=== PATIENT | female | born 1955 | race Caucasian/White ===

== ENCOUNTER 2016-06-15 23:15 | Emergency (ER) | payer BC ==
[~2016-06-15] VITALS: Ht 154.9 cm; Wt 99.5 kg
[~2016-06-15 23:15] MED LIST: ACET325T33 PO; ALBU8.5H3 INH; ATOR10TA65 PO; AZIT500T3 PO; BENA10TA48 PO; BUPR75TA9 PO; CITA20TA11 PO; DOCU-159 PO; FLUT9.9S NASAL; GABA300C16 PO; IBUP-1542 PO; IPRA4AER INHALATION; LANT3I SC; LORA10TA3 PO; MORP15TA92 PO; PANT40TA3 PO; SITA25TA3 PO; TRAZ50TA18 PO
[2016-06-15 23:33] VITALS: Ht 154.9 cm; Wt 99.5 kg
[2016-06-16] MEDS ORDERED: morphine 4 MG/ML VIAL IV STA ×2 (06:18→08:34)
[2016-06-16] MEDS ORDERED: ONDANSETRON 4 MG INJ IV STA (06:18)
--- NOTE | 2016-06-16 06:24 | ERA ---
ER Documentation Chief Complaint Date/Time DATE: 06/16/16 TIME: 06:10 Chief Complaint Palpitaion and leg pain with hx of Lymphedema HPI 61-year-old female with a history of diabetes mellitus type 2, CKD stage III, chronic pain, fibromyalgia, cervical cancer status post hysterectomy chronic lower extremity swelling and DVTs, anemia, bronchospasm and bronchitis ambulatory to the ED complaining of 4 day history of increasing swelling and pain of the left greater than right lower extremity. Pain is pressure-like, crampy, nonradiating and quantified as moderate to severe. No rubor or calor. No history of trauma or injury. Denies chest pain or palpitations. No shortness of breath or cough. No abdominal pain, nausea or vomiting. No relieving or exacerbating factors. No fevers or chills. ROS All systems reviewed and are negative except as per history of present illness. Medications Home Meds Active Scripts Azithromycin* (Zithromax*) 500 Mg Tablet, 500 MG PO DAILY for 5 Days, TAB Prov:DARWIN GARNICA 04/19/16 Albuterol/Ipratropium* (Combivent Respimat*) 20-100 Mcg/Inh - 4 Gm Aer.w.adap, 1 PUFF INHALATION QID, #1 INHALER 3 Refills Prov:DARWIN GARNICA 04/19/16 Ibuprofen* (Ibuprofen*) 600 Mg Tablet, 600 MG PO Q6H, #30 TAB Prov:MARY ANN COMER PA-C 04/08/16 Acetaminophen* (Tylenol*) 325 Mg Tablet, 1 TAB PO Q4 Y for PAIN AND OR ELEVATED TEMP, #30 TAB Prov:MARY ANN COMER PA-C 04/08/16 Albuterol Sulfate* (Proair HFA*) 8.5 Gm Hfa.aer.ad, 2 PUFF INH Q4H Y for WHEEZING AND SOB, #1 INHALER Prov:SINGH FARNCIS NP 02/28/16 Trazodone Hcl* (Desyrel*) 50 Mg Tab, 150 MG PO HS for 30 Days, #30 TAB Prov:TRACY AGUILAR M.D. 09/17/15 Gabapentin* (Gabapentin*) 300 Mg Capsule, 300 MG PO TID for 30 Days, #90 CAP Prov:TRACY AGUILAR M.D. 09/17/15 Citalopram Hydrobromide* (Celexa*) 20 Mg Tablet, 40 MG PO DAILY for 30 Days, # 30 TAB Prov:TRACY AGUILAR M.D. 09/17/15 Bupropion Hcl* (Bupropion Hcl*) 75 Mg Tablet, 75 MG PO BID for 30 Days, #60 TAB Prov:TRACY AGUILAR M.D. 09/17/15 Insulin Glargine* (Lantus*) 100 Unit/Ml Soln, 30 UNIT SC QHS for 30 Days, #30 DAYSX 3 28 30 units SQ at bedtime; hold for blood sugar below 80 Prov:TRACY AGUILAR M.D. 09/17/15 Atorvastatin Calcium (Atorvastatin Calcium) 10 Mg Tablet, 10 MG PO DAILY@21 for 30 Days, #30 TAB 1 by mouth at bedtime every night Prov:TRACY AGUILAR M.D. 09/17/15 Reported Medications Loratadine* (Loratadine*) 10 Mg Tablet, 10 MG PO DAILY, #30 TAB 09/15/15 Fluticasone Propionate (Flonase Allergy Relief) 9.9 Ml [place].susp, 1 SPRAY NASAL BID, #1 BOTTLE TO EACH NOSTRIL 09/15/15 Sitagliptin* (Januvia*) 25 Mg Tablet, 25 MG PO DAILY, #30 TAB 09/15/15 Benazepril Hcl* (Benazepril Hcl*) 10 Mg Tablet, 10 MG PO DAILY, #30 TAB 09/15/15 Pantoprazole* (Protonix*) 40 Mg Tablet.dr, 40 MG PO DAILY, TAB 09/15/15 Docusate Sodium* (Docusate Sodium*) 100 Mg Capsule, 100 MG PO BID, #60 CAP 09/15/15 Morphine Sulfate* (Ms Contin*) 15 Mg Tablet.sa, 30 MG PO Q12, TAB 09/15/15 Allergies Allergies: Coded Allergies: No Known Allergy (Unverified , 06/16/16) PMhx/Soc Reviewed in chart. As per HPI History of Surgery: Yes (HYSTERECTOMY, APPENDECTOMY) Anesthesia Reaction: No Hx Neurological Disorder: No Hx Respiratory Disorders: Yes (PNA, Bronchitis) Hx Cardiac Disorders: Yes (htn) Hx Psychiatric Problems: Yes (depression) Hx Miscellaneous Medical Probl: Yes (CHRONIC PAIN SYNDROME, CERVICAL CA, FIBROMYALGIA, DEPRESSION, DM, PNA) Hx Alcohol Use: No Hx Substance Use: No Hx Tobacco Use: No Smoking Status: Never smoker FmHx Reviewed in chart. Not relevant to presenting complaint. Physical Exam Vitals Vital Signs Date Time Temp Pulse Resp B/P Pulse Ox O2 Delivery O2 Flow Rate FiO2 06/16/16 06:40 98.1 105 18 126/73 96 Room Air 06/16/16 05:40 97.9 105 24 165/91 97 Room Air 06/15/16 23:33 97.9 113 24 142/65 95 Physical Exam Const: Alert, mild distress due to pain. Head: Atraumatic Eyes: Normal Conjunctiva ENT: Normal External Ears, Nose and Mouth. Neck: Full range of motion. Resp: Breath sounds are equal and clear to auscultation bilaterally Cardio: Regular rate and rhythm, no murmurs Abd: Soft, obese, non tender, non distended. Normal bowel sounds Skin: No petechiae or rashes Back: No midline or flank tenderness Ext: No cyanosis. Markedly swollen right greater than left lower extremity. No pitting edema. No calf tenderness. Neur: Awake and alert. No focal deficit observed. Psych: Normal Mood and Affect Result Diagram: 06/16/16 0600 06/16/16 0600 Results 24 hrs Laboratory Tests Test 06/16/16 06:00 Activated Partial Thromboplast Time 28.1Sec Alanine Aminotransferase (ALT/SGPT) 24IU/L Albumin 4.0g/dl Albumin/Globulin Ratio 1.11 Alkaline Phosphatase 106IU/L Anion Gap 19 Aspartate Amino Transf (AST/SGOT) 26IU/L Basophils # 0.110^3/ul Basophils % 0.9% Blood Morphology Comment Blood Urea Nitrogen 24mg/dl Calcium Level 9.6mg/dl Carbon Dioxide Level 26mmol/L Chloride Level 101mmol/L Creatinine 1.36mg/dl Direct Bilirubin 0.00mg/dl Eosinophils # 0.310^3/ul Eosinophils % 4.5% Globulin 3.60g/dl Glucose Level 309mg/dl Hematocrit 38.2% Hemoglobin 12.8g/dl INR International Normalized Ratio 0.89 Indirect Bilirubin 0.1mg/dl Lymphocytes # 1.910^3/ul Lymphocytes % 26.1% Mean Corpuscular Hemoglobin 27.7pg Mean Corpuscular Hemoglobin Concent 33.6g/dl Mean Corpuscular Volume 82.4fl Mean Platelet Volume 9.5fl Monocytes # 0.610^3/ul Monocytes % 7.9% Neutrophils # 4.410^3/ul Neutrophils % 60.6% Nucleated Red Blood Cells # 0.010^3/ul Nucleated Red Blood Cells % 0.0/100WBC Platelet Count 91274^3/UL Potassium Level 4.2mmol/L Prothrombin Time 12.0Sec Prothrombin Time Ratio 0.9 Red Blood Count 4.6410^6/ul Red Cell Distribution Width 15.7% Sodium Level 142mmol/L Total Bilirubin 0.1mg/dl Total Protein 7.6g/dl White Blood Count 7.210^3/ul Current Medications Medications (Trade) Dose Ordered Sig/Nuno Route PRN Reason Start Time Stop Time Status Last Admin Dose Admin Morphine Sulfate (morphine) 4 mg ONCE STAT IV 06/16/16 06:18 06/16/16 06:21 DC 06/16/16 06:41 Ondansetron HCl (Zofran Inj) 4 mg ONCE STAT IV 06/16/16 06:18 06/16/16 06:22 DC 06/16/16 06:41 Morphine Sulfate 4 mg 4 mg ONCE STAT IV 06/16/16 08:34 06/16/16 08:35 DC 06/16/16 08:45 Sodium Chloride (NS) 1,000 ml @ 1,000 mls/hr Q1H STAT IV 06/16/16 08:36 06/16/16 09:35 DC 06/16/16 08:45 EKG: TIME: 06/15/2016 23:35. Sinus tachycardia. Ventricular rate 112. Nonspecific T-wave inversions but no acute ST segment elevation or depression. No axis deviation or ectopy. EP Interpretation: Abnormal EKG. IMAGING: ROCEDURE: Ultrasound examination of bilateral lower extremities veins with Doppler. CLINICAL INDICATION: Leg pain and swelling. TECHNIQUE: Multiple sonographic images of bilateral lower extremity venous systems were performed with ruffin scale and color Doppler. COMPARISON: 04/17/2016. FINDINGS: Bilateral common femoral, superficial femoral and popliteal veins demonstrate normal color flow, waveforms, compression and response to augmentation. There is no evidence of deep venous thrombosis. Bilateral peroneal and left saphenous veins are not visualized. IMPRESSION: No evidence of deep venous thrombosis within bilateral lower extremities. .Kevon House MD, Date Time Electronically viewed and signed by .Kevon House MD, on 06/16/2016 07:20 .T/ Procedures/MDM DOCUMENTS REVIEWED: ED nurse, prior ED, prior records ED COURSE: IV saline lock. Morphine 4 mg/Zofran 4 mg IV REEXAMINATION/REEVALUATION: Time: 08:20. Doing well but still complaining of pain. Second morphine 4 mg IV given. Normal saline 1 L. REEXAMINATION/REEVALUATION: Time: 10:00. Doing well. Pain resolved. Vital signs normal. Wants to go home. MEDICAL DECISION MAKIN-year-old female with a history of diabetes mellitus type 2, CKD stage III, chronic pain, fibromyalgia, cervical cancer status post hysterectomy chronic lower extremity swelling and DVTs, anemia, bronchospasm and bronchitis ambulatory to the ED complaining of 4 day history of increasing swelling and pain of the left greater than right lower extremity. Venous Dopplers negative for DVT. No evidence of cellulitis or lymphangitis. Chronic renal insufficiency. Hyperglycemia without evidence of DKA or HONK treated with IV hydration and patient will take her regular diabetes medicine when she gets home. No chest pain, shortness of breath or other concerns regarding pulmonary embolism. Presentation consistent with exacerbation of chronic pain. Stable for discharge with precautionary instructions and outpatient follow-up as counseled. Counseled patient regarding diagnosis, diagnostic results and plan for discharge. 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
[2016-06-16 06:32] LABS: BASOPHIL # 0.1 10^3/ul (0.0-0.1); BASOPHILS % 0.9 % (0.0-2.0); EOSINOPHILS # 0.3 10^3/ul (0.0-0.5); EOSINOPHILS % 4.5 % (0.0-7.0); HEMATOCRIT 38.2 % (37.0-47.0); HEMOGLOBIN 12.8 g/dl (12.0-16.0); LYMPHOCYTES # 1.9 10^3/ul (0.8-2.9); LYMPHOCYTES % 26.1 % (15.0-51.0); MEAN CORPUSCULAR HEMOGLOBIN 27.7 pg (29.0-33.0); MEAN CORPUSCULAR HGB CONC 33.6 g/dl (32.0-37.0); MEAN CORPUSCULAR VOLUME 82.4 fl (82.0-101.0); MEAN PLATELET VOLUME 9.5 fl (7.4-10.4); MONOCYTE # 0.6 10^3/ul (0.3-0.9); MONOCYTES % 7.9 % (0.0-11.0); NEUTROPHIL # 4.4 10^3/ul (1.6-7.5); NEUTROPHILS % 60.6 % (39.0-77.0); PLATELET COUNT 199 10^3/UL (140-440); RED BLOOD COUNT 4.64 10^6/ul (4.20-5.40); RED CELL DISTRIBUTION WIDTH 15.7 % (11.5-14.5); UNCORRECTED WBC 7.2 10^3/ul (4.8-10.8); WHITE BLOOD COUNT 7.2 10^3/ul (4.8-10.8)
[2016-06-16 06:38] LABS: CONDITION 1; LH ANALYZER COMMENTS 1
[2016-06-16 06:40] VITALS: BP 126/73; PULSE 105; RESP 18; TEMP 98.1
[2016-06-16 06:41] LABS: INR 0.89; PT RATIO 0.9
[2016-06-16 06:42] LABS: PARTIAL THROMBOPLASTIN TIME 28.1 Sec (25.0-35.0)
[2016-06-16 06:56] LABS: POTASSIUM 4.2 mmol/L (3.5-5.1)
[2016-06-16 06:58] LABS: ALBUMIN/GLOBULIN RATIO 1.11; BILIRUBIN,INDIRECT 0.1 mg/dl (0-1.1); BILIRUBIN,TOTAL 0.1 mg/dl (0.2-1.3); CREATININE 1.36 mg/dl (0.44-1.00); TOTAL PROTEIN 7.6 g/dl (6.1-8.1)
[2016-06-16 06:59] LABS: CALCIUM 9.6 mg/dl (8.4-10.2)
--- NOTE | 2016-06-16 07:20 | RADRPT ---
PROCEDURE: Ultrasound examination of bilateral lower extremities veins with Doppler. CLINICAL INDICATION: Leg pain and swelling. TECHNIQUE: Multiple sonographic images of bilateral lower extremity venous systems were performed with ruffin scale and color Doppler. COMPARISON: 04/17/2016. FINDINGS: Bilateral common femoral, superficial femoral and popliteal veins demonstrate normal color flow, wav eforms, compression and response to augmentation. There is no evidence of deep venous thrombosis. B ilateral peroneal and left saphenous veins are not visualized. IMPRESSION: No evidence of deep venous thrombosis within bilateral lower extremities. .Kevon House MD, MD Date Time Electronically viewed and signed by .Kevon House MD, MD on 06/16/2016 07:20 .T/
[2016-06-16] MEDS ORDERED: SOD CHLORIDE 0.9% 1,000 ML IV STA (08:36)
== END 2016-06-16 10:34 | disposition home or self-care (01) ==
LOC: E/R 23:15
DX: G89.29 Other chronic pain (principal); I89.0 Lymphedema, not elsewhere classified; M79.7 Fibromyalgia; E11.65 Type 2 diabetes mellitus with hyperglycemia; I12.9 Hypertensive chronic kidney disease with stage 1 through stage 4 chronic kidney disease, or unspecified chronic kidney disease; N18.3 Chronic kidney disease, stage 3 (moderate); Z85.41 Personal history of malignant neoplasm of cervix uteri; Z79.84 Long term (current) use of oral hypoglycemic drugs; Z79.4 Long term (current) use of insulin
CPT/HCPCS: 80053; 85025; 85610; 85730; 93970; J2270; J2405; J7030; 93005; 96374; 96375; 96376

== ENCOUNTER 2016-06-20 15:00 | Emergency (ER) | payer BC ==
[~2016-06-20] VITALS: Wt 100.0 kg
[2016-06-20] MEDS ORDERED: ONDANSETRON 4 MG INJ IV STA (15:31)
[2016-06-20] MEDS ORDERED: FAMOTIDINE 20 MG INJ IV STA (15:31)
[2016-06-20] MEDS ORDERED: SOD CHLORIDE 0.9% 1,000 ML IV STA ×2 (15:31→18:14)
[2016-06-20] MEDS ORDERED: KETOROLAC 15 MG INJ IV STA (16:06)
[2016-06-20 16:24] LABS: BASOPHIL # 0.1 10^3/ul (0.0-0.1); BASOPHILS % 0.9 % (0.0-2.0); EOSINOPHILS # 0.2 10^3/ul (0.0-0.5); EOSINOPHILS % 2.5 % (0.0-7.0); HEMATOCRIT 37.9 % (37.0-47.0); HEMOGLOBIN 12.6 g/dl (12.0-16.0); LYMPHOCYTES # 1.6 10^3/ul (0.8-2.9); LYMPHOCYTES % 19.1 % (15.0-51.0); MEAN CORPUSCULAR HEMOGLOBIN 27.5 pg (29.0-33.0); MEAN CORPUSCULAR HGB CONC 33.4 g/dl (32.0-37.0); MEAN CORPUSCULAR VOLUME 82.5 fl (82.0-101.0); MONOCYTE # 0.6 10^3/ul (0.3-0.9); MONOCYTES % 6.7 % (0.0-11.0); NEUTROPHILS % 70.8 % (39.0-77.0); PLATELET COUNT 216 10^3/UL (140-440); RED CELL DISTRIBUTION WIDTH 15.5 % (11.5-14.5); UNCORRECTED WBC 8.5 10^3/ul (4.8-10.8); WHITE BLOOD COUNT 8.5 10^3/ul (4.8-10.8)
[2016-06-20 16:27] LABS: ADD UMIC YES; URINE BILIRUBIN (Dip) NEGATIVE (NEGATIVE); URINE BLOOD (Dip) TRACE (NEGATIVE); URINE COLOR LT. YELLOW (YELLOW); URINE GLUCOSE (Dip) >=1000 % (NEGATIVE); URINE KETONES (Dip) NEGATIVE (NEGATIVE); URINE LEUKOCYTE ESTERASE (Dip) NEGATIVE (NEGATIVE); URINE NITRITE (Dip) NEGATIVE (NEGATIVE); URINE TOTAL PROTEIN (Dip) NEGATIVE (NEGATIVE); URINE UROBILINOGEN (Dip) 0.2 E.U./dL (0.1-1.0)
[2016-06-20] MEDS ORDERED: BUPR300T48 PO (16:28)
[2016-06-20] MEDS ORDERED: LORA1TAB PO (16:29)
[2016-06-20] MEDS ORDERED: LANT3I SC (16:29)
[2016-06-20] MEDS ORDERED: OXYC-209 PO (16:30)
[2016-06-20 16:33] LABS: ALBUMIN 4.1 g/dl (3.3-4.9)
[2016-06-20 16:34] LABS: POTASSIUM 4.6 mmol/L (3.5-5.1)
[2016-06-20 16:35] LABS: CONDITION 1; LH ANALYZER COMMENTS 1
[2016-06-20 16:36] LABS: ALBUMIN/GLOBULIN RATIO 1.28; BILIRUBIN,INDIRECT 0.1 mg/dl (0-1.1); BILIRUBIN,TOTAL 0.1 mg/dl (0.2-1.3); CREATININE 1.31 mg/dl (0.44-1.00); TOTAL PROTEIN 7.3 g/dl (6.1-8.1)
[2016-06-20 16:37] LABS: CALCIUM 9.5 mg/dl (8.4-10.2)
[2016-06-20 16:49] LABS: BACTERIA,URINE FEW
[2016-06-20] MEDS ORDERED: INSULIN REGULAR, HUMAN 100 UNIT/1 ML 3ML VIAL SC ONE (17:00)
[2016-06-20] MEDS ORDERED: morphine 4 MG/ML VIAL IV STA (17:49)
--- NOTE | 2016-06-20 18:47 | ERD ---
ER Documentation Chief Complaint Date/Time DATE: 06/20/16 TIME: 18:44 Chief Complaint high sugars in 400's and nausea and abdominal pain for 1 wk HPI This is a 61-year-old female who presents to the emergency room for evaluation of abdominal discomfort, nausea and high blood sugar. The patient is a type II diabetic and is taking Januvia, insulin, and glyburide. She states that she took her medications as prescribed and that she took her blood sugar was greater than 400. She came to the ER for evaluation. She denies any diarrhea or fevers associated with this. She describes her abdominal discomfort is a crampy feeling localized in the epigastric region with no radiation. ROS All systems reviewed and are negative except as per history of present illness. Medications Home Meds Reported Medications Oxycodone HCl/Acetaminophen (Percocet 10-325 mg Tablet) 1 Each Tablet, 2 EACH PO BID, TAB 06/20/16 Lorazepam* (Lorazepam*) 1 Mg Tablet, 1 MG PO HS, #30 TAB 06/20/16 Insulin Glargine* (Lantus*) 100 Unit/Ml Soln, 40 UNIT SC QHS, #1 VIAL 06/20/16 Bupropion Hcl* (Wellbutrin XL*) 300 Mg Tab.sr.24h, 300 MG PO TID, TAB.SA 06/20/16 Sitagliptin* (Januvia*) 25 Mg Tablet, 25 MG PO DAILY, #30 TAB 09/15/15 Pantoprazole* (Protonix*) 40 Mg Tablet.dr, 40 MG PO DAILY, TAB 09/15/15 Discontinued Reported Medications Loratadine* (Loratadine*) 10 Mg Tablet, 10 MG PO DAILY, #30 TAB 09/15/15 Fluticasone Propionate (Flonase Allergy Relief) 9.9 Ml [place].susp, 1 SPRAY NASAL BID, #1 BOTTLE TO EACH NOSTRIL 09/15/15 Benazepril Hcl* (Benazepril Hcl*) 10 Mg Tablet, 10 MG PO DAILY, #30 TAB 09/15/15 Docusate Sodium* (Docusate Sodium*) 100 Mg Capsule, 100 MG PO BID, #60 CAP 09/15/15 Morphine Sulfate* (Ms Contin*) 15 Mg Tablet.sa, 30 MG PO Q12, TAB 09/15/15 Discontinued Scripts Azithromycin* (Zithromax*) 500 Mg Tablet, 500 MG PO DAILY for 5 Days, TAB Prov:DARWIN GARNICA F 04/19/16 Albuterol/Ipratropium* (Combivent Respimat*) 20-100 Mcg/Inh - 4 Gm Aer.w.adap, 1 PUFF INHALATION QID, #1 INHALER 3 Refills Prov:DARWIN GARNICA F 04/19/16 Ibuprofen* (Ibuprofen*) 600 Mg Tablet, 600 MG PO Q6H, #30 TAB Prov:MARY ANN COMER PA-C 04/08/16 Acetaminophen* (Tylenol*) 325 Mg Tablet, 1 TAB PO Q4 Y for PAIN AND OR ELEVATED TEMP, #30 TAB Prov:MARY ANN COMER PA-C 04/08/16 Albuterol Sulfate* (Proair HFA*) 8.5 Gm Hfa.aer.ad, 2 PUFF INH Q4H Y for WHEEZING AND SOB, #1 INHALER Prov:SINGH FRANCIS NP 02/28/16 Trazodone Hcl* (Desyrel*) 50 Mg Tab, 150 MG PO HS for 30 Days, #30 TAB Prov:TRACY AGUILAR M.D. 09/17/15 Gabapentin* (Gabapentin*) 300 Mg Capsule, 300 MG PO TID for 30 Days, #90 CAP Prov:TRACY AGUILAR MMelodieD. 09/17/15 Citalopram Hydrobromide* (Celexa*) 20 Mg Tablet, 40 MG PO DAILY for 30 Days, # 30 TAB Prov:TRACY AGUILAR MMelodieD. 09/17/15 Bupropion Hcl* (Bupropion Hcl*) 75 Mg Tablet, 75 MG PO BID for 30 Days, #60 TAB Prov:TRACY AGUILAR MMelodieDMelodie 09/17/15 Insulin Glargine* (Lantus*) 100 Unit/Ml Soln, 30 UNIT SC QHS for 30 Days, #30 DAYSX 3 28 30 units SQ at bedtime; hold for blood sugar below 80 Prov:TRACY AGUILAR. MMelodieDMelodie 09/17/15 Atorvastatin Calcium (Atorvastatin Calcium) 10 Mg Tablet, 10 MG PO DAILY@21 for 30 Days, #30 TAB 1 by mouth at bedtime every night Prov:TRACY AGUILAR M.D. 09/17/15 Allergies Allergies: Coded Allergies: No Known Allergy (Unverified , 06/20/16) PMhx/Soc History of Surgery: Yes (HYSTERECTOMY, APPENDECTOMY) Anesthesia Reaction: No Hx Neurological Disorder: No Hx Respiratory Disorders: Yes (PNA, Bronchitis) Hx Cardiac Disorders: Yes (htn) Hx Psychiatric Problems: Yes (depression) Hx Miscellaneous Medical Probl: Yes (CHRONIC PAIN SYNDROME, CERVICAL CA, FIBROMYALGIA, DEPRESSION, DM, PNA) Hx Alcohol Use: No Hx Substance Use: No Hx Tobacco Use: No Smoking Status: Never smoker Physical Exam Vitals Vital Signs Date Time Temp Pulse Resp B/P Pulse Ox O2 Delivery O2 Flow Rate FiO2 06/20/16 17:12 88 18 133/85 98 Room Air 06/20/16 15:11 98.8 122 20 158/72 96 Physical Exam INITIAL VITAL SIGNS: Reviewed by me GENERAL: The patient is well developed and appropriate for usual state of health in no apparent distress HEENT: Pupils equal, round, and reactive to light. EOMI. There is no scleral icterus. NECK: C-spine is soft and supple, there is no meningismus. There is no cervical lymphadenopathy. LUNGS: Clear to auscultation bilaterally. There are no rales, wheezes or rhonchi. HEART: Regular rate and rhythm, no murmurs, clicks, rubs or gallops. ABDOMEN: Soft, non-tender, non-distended. There are bowel sounds in all four quadrants. No rebound or guarding. EXTREMITIES: Lymphedema noted in the left lower extremity, there is no peripheral cyanosis. No focal swelling or erythema. NEUROLOGICAL: The patient moves all four extremities with 5/5 strength. Cranial nerves II - XII are intact. Normal gait. Alert and oriented SKIN: There is no apparent rash or petechiae. HEME/LYMPHATIC: There is no evidence of excessive bruising or lymphedema. PSYCHIATRIC: The patient does not appear anxious or depressed. Result Diagram: 06/20/16 1600 06/20/16 1600 Results 24 hrs Laboratory Tests Test 06/20/16 15:13 06/20/16 15:30 06/20/16 16:00 06/20/16 18:13 Bedside Glucose 414mg/dL 401mg/dL 304mg/dL Alanine Aminotransferase (ALT/SGPT) 39IU/L Albumin 4.1g/dl Albumin/Globulin Ratio 1.28 Alkaline Phosphatase 93IU/L Anion Gap 21 Aspartate Amino Transf (AST/SGOT) 33IU/L Basophils # 0.110^3/ul Basophils % 0.9% Blood Morphology Comment Blood Urea Nitrogen 21mg/dl Calcium Level 9.5mg/dl Carbon Dioxide Level 25mmol/L Chloride Level 98mmol/L Creatinine 1.31mg/dl Direct Bilirubin 0.00mg/dl Eosinophils # 0.210^3/ul Eosinophils % 2.5% Globulin 3.20g/dl Glucose Level 432mg/dl Hematocrit 37.9% Hemoglobin 12.6g/dl Indirect Bilirubin 0.1mg/dl Lipase 281U/L Lymphocytes # 1.610^3/ul Lymphocytes % 19.1% Mean Corpuscular Hemoglobin 27.5pg Mean Corpuscular Hemoglobin Concent 33.4g/dl Mean Corpuscular Volume 82.5fl Mean Platelet Volume 10.0fl Monocytes # 0.610^3/ul Monocytes % 6.7% Neutrophils # 6.010^3/ul Neutrophils % 70.8% Nucleated Red Blood Cells # 0.010^3/ul Nucleated Red Blood Cells % 0.0/100WBC Platelet Count 11682^3/UL Potassium Level 4.6mmol/L Red Blood Count 4.6010^6/ul Red Cell Distribution Width 15.5% Sodium Level 139mmol/L Total Bilirubin 0.1mg/dl Total Protein 7.3g/dl Urine Bacteria FEW Urine Bilirubin NEGATIVE Urine Clarity CLEAR Urine Color LT. YELLOW Urine Epithelial Cells FEW Urine Glucose >=1000% Urine Hemoglobin TRACE Urine Ketones NEGATIVE Urine Leukocyte Esterase NEGATIVE Urine Microscopic RBC 5-10/HPF Urine Microscopic WBC 2-5/HPF Urine Nitrite NEGATIVE Urine Specific [place] 1.015 Urine Total Protein NEGATIVE Urine Urobilinogen 0.2 E.U./dL Urine pH 6.0 White Blood Count 8.510^3/ul Current Medications Medications (Trade) Dose Ordered Sig/Nuno Route PRN Reason Start Time Stop Time Status Last Admin Dose Admin Sodium Chloride (NS) 1,000 ml @ 1,000 mls/hr Q1H STAT IV 06/20/16 15:31 06/20/16 16:30 DC 06/20/16 15:55 Ondansetron HCl (Zofran Inj) 4 mg ONCE STAT IV 06/20/16 15:31 06/20/16 15:32 DC 06/20/16 15:55 Famotidine (Pepcid Iv) 20 mg ONCE STAT IV 06/20/16 15:31 06/20/16 15:32 DC 06/20/16 15:55 Ketorolac Tromethamine (Toradol) 15 mg ONCE STAT IV 06/20/16 16:06 06/20/16 16:07 DC 06/20/16 16:17 Insulin Human Regular (Humulin R) 15 unit ONCE ONCE SC 06/20/16 17:00 06/20/16 17:01 DC 06/20/16 17:08 Morphine Sulfate 4 mg 4 mg ONCE STAT IV 06/20/16 17:49 06/20/16 17:50 DC 06/20/16 17:57 Sodium Chloride (NS) 1,000 ml @ 1,000 mls/hr Q1H STAT IV 06/20/16 18:14 06/20/16 19:13 06/20/16 18:22 Procedures/MDM This is a 61-year-old female presents to the emergency room for evaluation of abdominal cramping and hyperglycemia. She was found to have a blood sugar 401. She did have mild epigastric tenderness to palpation was given morphine for pain. Pulmonary evaluation she states that her pain has improved drastically. She is in no acute distress at this time. No signs of DKA on blood work. Her blood sugar was greater than 400 she was given 15 units of subcutaneous insulin and 2 L of fluid. Last glucose check was 301. This patient states she is feeling better will be discharged home at this time with a prescription for Zantac for possible gastritis. Advised to follow-up with her primary care physician to adjust her dose of insulin if her blood sugar is chronically elevated and she verbalized understanding. Departure Diagnosis: Primary Impression: Uncontrolled type 2 diabetes mellitus Additional Impressions: Renal insufficiency Abdominal pain Condition: Stable LEEANNE HARVEY DO Jun 20, 2016 18:47
[2016-06-20] MEDS ORDERED: RANI150T9 PO (18:48)
[2016-06-20 19:00] VITALS: BP 128/80; PULSE 92; RESP 20; TEMP 98.1
[2016-06-20] MEDS ORDERED: HYDROCODONE/APAP (5/325) TAB PO ONE (19:30)
== END 2016-06-20 19:24 | disposition home or self-care (01) ==
LOC: E/R 15:00
DX: E11.9 Type 2 diabetes mellitus without complications (principal); N28.9 Disorder of kidney and ureter, unspecified; I10 Essential (primary) hypertension; Z79.4 Long term (current) use of insulin; Z79.84 Long term (current) use of oral hypoglycemic drugs; Z85.41 Personal history of malignant neoplasm of cervix uteri
CPT/HCPCS: 36415; 80053; 81001; 82962; 83690; 85025; 96361; 96372; 96374; 96375; 99284; J1885; J2270; J2405; J7030; Z7610; 81003

== ENCOUNTER 2016-06-27 20:53 | Emergency (ER) | payer BC ==
[~2016-06-27] VITALS: Ht 160 cm; Wt 97.6 kg
[~2016-06-27 20:53] MED LIST changes: -ACET325T33 PO; -ALBU8.5H3 INH; -ATOR10TA65 PO; -AZIT500T3 PO; -BENA10TA48 PO; +BUPR300T48 PO; -BUPR75TA9 PO; -CITA20TA11 PO; -DOCU-159 PO; -FLUT9.9S NASAL; -GABA300C16 PO; -IBUP-1542 PO; -IPRA4AER INHALATION; -LORA10TA3 PO; +LORA1TAB PO; -MORP15TA92 PO; +OXYC-209 PO; +RANI150T9 PO; -TRAZ50TA18 PO
[2016-06-27 20:57] VITALS: Ht 160 cm; Wt 97.6 kg
[2016-06-27] MEDS ORDERED: ASPIRIN 325 MG TAB PO STA (22:20)
[2016-06-27] MEDS ORDERED: morphine 4 MG/ML VIAL IV STA (22:20)
[2016-06-27] MEDS ORDERED: SOD CHLORIDE 0.9% 1,000 ML IV ONE (22:30)
--- NOTE | 2016-06-27 23:04 | RADRPT ---
PROCEDURE: XR Chest. CLINICAL INDICATION: Chest pain. TECHNIQUE: Portable AP upright view of the chest was obtained. COMPARISON: 04/14/2016 FINDINGS: The cardiomediastinal silhouette is within normal limits. The lungs are clear. There is no evidenc e for pleural effusion, pneumothorax or pulmonary vascular congestion. The osseous structures are i ntact with no evidence for acute abnormality. RPTAT:HJJR IMPRESSION: No evidence for acute intrathoracic pathology or interval change from the prior exam. Physician Cy Date Time Electronically viewed and signed by Gino Persaud Physician on 06/27/2016 23:04 /
[2016-06-27 23:21] LABS: ADD SCAN DIFF NO
[2016-06-27 23:23] LABS: BASOPHIL # 0.1 10^3/ul (0.0-0.1); BASOPHILS % 0.9 % (0.0-2.0); EOSINOPHILS # 0.2 10^3/ul (0.0-0.5); EOSINOPHILS % 2.7 % (0.0-7.0); HEMATOCRIT 35.7 % (37.0-47.0); LYMPHOCYTES # 1.8 10^3/ul (0.8-2.9); LYMPHOCYTES % 24.4 % (15.0-51.0); MEAN CORPUSCULAR HEMOGLOBIN 27.6 pg (29.0-33.0); MEAN CORPUSCULAR HGB CONC 33.6 g/dl (32.0-37.0); MEAN CORPUSCULAR VOLUME 82.3 fl (82.0-101.0); MEAN PLATELET VOLUME 11.5 fl (7.4-10.4); MONOCYTE # 0.5 10^3/ul (0.3-0.9); MONOCYTES % 6.4 % (0.0-11.0); NEUTROPHIL # 4.9 10^3/ul (1.6-7.5); NEUTROPHILS % 65.2 % (39.0-77.0); PLATELET COUNT 245 10^3/UL (140-415); RED BLOOD COUNT 4.34 10^6/ul (4.20-5.40); RED CELL DISTRIBUTION WIDTH 14.4 % (11.5-14.5); WHITE BLOOD COUNT 7.5 10^3/ul (4.8-10.8)
--- NOTE | 2016-06-27 23:28 | RADRPT ---
PROCEDURE: US Lower extremity Venous. CLINICAL INDICATION: [id number] swelling of the left lower extremity. TECHNIQUE: Multiple sonographic images of the left lower extremity deep venous system was obtained utilizing grayscale, color-flow, compressive sonography and doppler imaging with augmentation. The images were reviewed on a PACS workstation. COMPARISON: None. FINDINGS: There is normal compressibility and flow within the left common femoral, deep femoral, superficial f emoral and popliteal veins. The deep veins the calf were incompletely visualized secondary to massiv e degree of swelling, and per technologist notes IMPRESSION: No sonographic evidence for deep venous thrombosis. RPTAT: [facility] Physician Rashid Date Time Electronically viewed and signed by Physician Rashid on 06/27/2016 23:27 RS/
[2016-06-27 23:32] LABS: INR 0.86; PROTIME 11.7 Sec (12.2-14.2); PT RATIO 0.9
[2016-06-27 23:33] LABS: PARTIAL THROMBOPLASTIN TIME 26.9 Sec (25.0-35.0)
[2016-06-28 00:55] LABS: ADD UMIC YES; URINE BILIRUBIN (Dip) NEGATIVE (NEGATIVE); URINE BLOOD (Dip) 3+ (NEGATIVE); URINE COLOR RED (YELLOW); URINE GLUCOSE (Dip) >=1000 % (NEGATIVE); URINE KETONES (Dip) NEGATIVE (NEGATIVE); URINE LEUKOCYTE ESTERASE (Dip) NEGATIVE (NEGATIVE); URINE NITRITE (Dip) NEGATIVE (NEGATIVE); URINE TOTAL PROTEIN (Dip) 2+ (NEGATIVE); URINE UROBILINOGEN (Dip) 0.2 E.U./dL (0.1-1.0)
[2016-06-28 01:19] LABS: POTASSIUM 4.1 mmol/L (3.5-5.1)
[2016-06-28 01:21] LABS: CREATININE 1.27 mg/dl (0.44-1.00)
[2016-06-28 01:22] LABS: CALCIUM 9.4 mg/dl (8.4-10.2)
[2016-06-28 01:35] LABS: TROPONIN-I 0.014 ng/ml (0.00-0.12)
[2016-06-28 01:49] LABS: BACTERIA,URINE FEW; SQUAMOUS EPITHELIAL CELL,UR FEW; URINE RBCS >200 /HPF (0)
[2016-06-28 02:14] VITALS: BP 130/71; PULSE 107; RESP 24; TEMP 98.2
[2016-06-28] MEDS ORDERED: DICLOFENAC SODIUM 37.5 MG/ML VIAL IV STA (02:41)
[2016-06-28] MEDS ORDERED: DICLOFENAC SODIUM 37.5 MG/ML VIAL IV ONE (02:44)
[2016-06-28] MEDS ORDERED: NITROGLYCERIN (SL) 0.4 MG TAB SL ONE (03:00)
[2016-06-28] MEDS ORDERED: POLY17PO6 PO (04:38)
[2016-06-28] MEDS ORDERED: MAGN296S40 PO (04:38)
[2016-06-28] MEDS ORDERED: LEVO500T72 PO (04:38)
[2016-06-28] MEDS ORDERED: NAPR-688 PO (04:38)
[2016-06-28] MEDS ORDERED: BENZ100C70 PO (04:38)
[2016-06-28] MEDS ORDERED: HYDR-906 PO (04:38)
[2016-06-28] MEDS ORDERED: morphine 4 MG/ML VIAL IV STA (04:43)
--- NOTE | 2016-06-28 04:51 | ERD ---
ER Documentation Chief Complaint Date/Time DATE: 06/28/16 TIME: 04:45 Chief Complaint palpitation, cough x 10 days HPI This 81-year-old female presents for cough for 10 days and feelings of palpitations. She denies chest pain except for when she coughs and is along her ribs. Denies lightheadedness dizziness fevers and chills. Does have mild shortness of breath when she is coughing. Also has a headache exacerbated by cough that came on gradually for the last few days. She also states that she is constipated and has not had a bowel movement for a couple of days but denies any significant abdominal pain. He noted the patient's left leg is swollen compared to the right leg. She states that is always like that and that one time there was a DVT. She is currently on Xarelto. Also has a history of chronic pain according to her physician's documentation that I reviewed. ROS All systems reviewed and are negative except as per history of present illness. Medications Home Meds Active Scripts Magnesium Citrate* (Magnesium Citrate*) 296 Ml Solution, 296 ML PO ONCE, #1 BOTTLE Prov:SHASHA FISH DO 06/28/16 Polyethylene Glycol* (Miralax*) 17 Gm Powd.pack, 17 GM PO BID, #60 PACKET Prov:SHASHA FISH 06/28/16 Benzonatate* (Tessalon Perle*) 100 Mg Capsule, 100 MG PO Q8H Y for COUGH, #14 CAP Prov:SHASHA FISH DO 06/28/16 Levofloxacin* (Levaquin*) 500 Mg Tablet, 500 MG PO DAILY for 7 Days, TAB Prov:SHSAHA FISH DO 06/28/16 Naproxen* (Naproxen*) 500 Mg Tablet, 500 MG PO BID Y for PAIN, #6 TAB Prov:SHASHA FISH DO 06/28/16 Hydrocodone/Acetaminophen ([place] 5-325 Tablet) 1 Each Tablet, 1 EACH PO Q6, #14 TAB Prov:SHASHA FISH 06/28/16 Ranitidine Hcl* (Zantac*) 150 Mg Tablet, 150 MG PO BID Y for EPIGASTRIC PAIN, # 30 TAB Prov:LEEANNE HARVEY DO 06/20/16 Reported Medications Oxycodone HCl/Acetaminophen (Percocet 10-325 mg Tablet) 1 Each Tablet, 2 EACH PO BID, TAB 06/20/16 Lorazepam* (Lorazepam*) 1 Mg Tablet, 1 MG PO HS, #30 TAB 06/20/16 Insulin Glargine* (Lantus*) 100 Unit/Ml Soln, 40 UNIT SC QHS, #1 VIAL 06/20/16 Bupropion Hcl* (Wellbutrin XL*) 300 Mg Tab.sr.24h, 300 MG PO TID, TAB.SA 06/20/16 Sitagliptin* (Januvia*) 25 Mg Tablet, 25 MG PO DAILY, #30 TAB 09/15/15 Pantoprazole* (Protonix*) 40 Mg Tablet.dr, 40 MG PO DAILY, TAB 09/15/15 Allergies Allergies: Coded Allergies: No Known Allergy (Unverified , 06/27/16) PMhx/Soc History of Surgery: Yes (HYSTERECTOMY, APPENDECTOMY) Anesthesia Reaction: No Hx Neurological Disorder: No Hx Respiratory Disorders: Yes (PNA, Bronchitis) Hx Cardiac Disorders: Yes (htn) Hx Psychiatric Problems: Yes (depression) Hx Miscellaneous Medical Probl: Yes (CHRONIC PAIN SYNDROME, CERVICAL CA, FIBROMYALGIA, DEPRESSION, DM, PNA) Hx Alcohol Use: No Hx Substance Use: No Hx Tobacco Use: No Smoking Status: Never smoker Physical Exam Vitals Vital Signs Date Time Temp Pulse Resp B/P Pulse Ox O2 Delivery O2 Flow Rate FiO2 06/28/16 02:14 98.2 107 24 130/71 95 Room Air 06/28/16 00:24 98.0 101 20 133/72 06/27/16 22:50 98.4 103 24 133/91 97 Room Air 06/27/16 20:57 98.1 111 20 153/71 96 Physical Exam Const: [] No distress, well appearing Head: Atraumatic Eyes: Normal Conjunctiva ENT: Normal External Ears, Nose and Mouth. Neck: Full range of motion..~ No meningismus. Resp: Clear to auscultation bilaterally Cardio: Regular tachycardia, no murmurs Abd: Soft, non tender, non distended. Normal bowel sounds Skin: No petechiae or rashes Back: No midline or flank tenderness Ext: No cyanosis, or edema, left leg is swollen compared to the right leg. Neur: Awake and alert and oriented 3, cranial nerves II through XII intact, no focal deficits Psych: Normal Mood and Affect Result Diagram: 06/27/16223406/27/162234 Results 24 hrs Laboratory Tests Test 06/27/16 22:35 06/28/16 00:00 Activated Partial Thromboplast Time 26.9Sec Anion Gap 21 B-Type Natriuretic Peptide 81PG/ML Basophils # 0.110^3/ul Basophils % 0.9% Blood Urea Nitrogen 18mg/dl Calcium Level 9.4mg/dl Carbon Dioxide Level 25mmol/L Chloride Level 96mmol/L Creatinine 1.27mg/dl Eosinophils # 0.210^3/ul Eosinophils % 2.7% Glucose Level 389mg/dl Hematocrit 35.7% Hemoglobin 12.0g/dl INR International Normalized Ratio 0.86 Lymphocytes # 1.810^3/ul Lymphocytes % 24.4% Mean Corpuscular Hemoglobin 27.6pg Mean Corpuscular Hemoglobin Concent 33.6g/dl Mean Corpuscular Volume 82.3fl Mean Platelet Volume 11.5fl Monocytes # 0.510^3/ul Monocytes % 6.4% Neutrophils # 4.910^3/ul Neutrophils % 65.2% Nucleated Red Blood Cells # 0.010^3/ul Nucleated Red Blood Cells % 0.0/100WBC Platelet Count 71184^3/UL Potassium Level 4.1mmol/L Prothrombin Time 11.7Sec Prothrombin Time Ratio 0.9 Red Blood Count 4.3410^6/ul Red Cell Distribution Width 14.4% Sodium Level 138mmol/L Troponin I 0.014ng/ml White Blood Count 7.510^3/ul Urine Bacteria FEW Urine Bilirubin NEGATIVE Urine Clarity SLIGHTLY CLOUDY Urine Color RED Urine Glucose >=1000% Urine Hemoglobin 3+ Urine Ketones NEGATIVE Urine Leukocyte Esterase NEGATIVE Urine Microscopic RBC >200/HPF Urine Microscopic WBC 0-2/HPF Urine Nitrite NEGATIVE Urine Specific [place] 1.020 Urine Squamous Epithelial Cells FEW Urine Total Protein 2+ Urine Urobilinogen 0.2 E.U./dL Urine pH 6.0 Current Medications Medications (Trade) Dose Ordered Sig/Nuno Route PRN Reason Start Time Stop Time Status Last Admin Dose Admin Aspirin (Aspirin) 325 mg ONCE STAT PO 06/27/16 22:20 06/27/16 22:27 DC 06/27/16 22:42 Morphine Sulfate 4 mg 4 mg ONCE STAT IV 06/27/16 22:20 06/27/16 22:27 DC 06/27/16 22:43 Sodium Chloride (NS) 1,000 ml @ 1,000 mls/hr Q1H ONCE IV 06/27/16 22:30 06/27/16 23:29 DC 06/27/16 22:43 Diclofenac Sodium (Dyloject) 37.5 mg ONCE STAT IV 06/28/16 02:41 06/28/16 02:42 Cancel Diclofenac Sodium (Dyloject) 37.5 mg ONCE ONCE IV 06/28/16 02:44 06/28/16 02:45 DC 06/28/16 02:49 Nitroglycerin (Nitroglycerin (Sl Tab) 0.4 Mg) 1 tab ONCE ONCE SL 06/28/16 03:00 06/28/16 03:01 DC 06/28/16 02:59 Morphine Sulfate (morphine) 4 mg ONCE STAT IV 06/28/16 04:43 06/28/16 04:44 DC Procedures/MDM This is a well-appearing 61-year-old female with 10 days of cough. While may begin as a viral infection is likely a bronchitis at this point. She is well- appearing has no elevated white count. Does have some hyperglycemia for which she was given normal saline. Patient denies chest pain when she is not coughing. Symptoms were improved in the emergency room. Liver this point outpatient treatment is appropriate I will treat with Levaquin for 7 days. Giving her return precautions to the emergency room for any concerning change or inability to control her blood sugars. Also recommending primary care follow- up in the next couple of days. EKG interpretation: Sinus tachycardia rate of 1:15, left axis deviation, no ST or T-wave changes concerning for acute ischemia felt coverer interpretation: Mild sinus tachycardia alternating with normal sinus rhythm in the 90s, no other arrhythmias Chest x-ray interpretation: No acute process, no infiltrates, no widened mediastinum, no pneumothorax, no fractures Duplex venous Doppler ultrasound of the left lower extremity: Negative for DVT Departure Diagnosis: Primary Impression: Acute bronchitis Additional Impression: Hyperglycemia Condition: Stable Patient Instructions: Hyperglycemia (High Blood Sugar), Bronchitis, Antiobiotic Treatment (Adult), Constipation (Adult) Additional Instructions: Call your primary care doctor TOMORROW for an appointment during the next 1-2 days.See the doctor sooner or return here if your condition worsens before your appointment time. SHASHA FISH DO Jun 28, 2016 04:51
== END 2016-06-28 04:59 | disposition home or self-care (01) ==
LOC: E/R 20:53
DX: J20.9 Acute bronchitis, unspecified (principal); I10 Essential (primary) hypertension; R07.9 Chest pain, unspecified; E11.65 Type 2 diabetes mellitus with hyperglycemia; Z79.4 Long term (current) use of insulin; Z79.84 Long term (current) use of oral hypoglycemic drugs; Z85.41 Personal history of malignant neoplasm of cervix uteri
CPT/HCPCS: 36415; 71010; 80048; 81001; 81003; 83880; 84484; 85025; 85610; 85730; 87400; 93005; 93971; 96361; 96374; 96375; 96376; 99285; J2270; J7030; Z7610

== ENCOUNTER 2016-08-25 17:05 | Emergency (ER) | payer BC ==
[~2016-08-25] VITALS: Wt 71.0 kg
[~2016-08-25 17:05] MED LIST changes: +BENZ100C70 PO; +HYDR-906 PO; +LEVO500T72 PO; +MAGN296S40 PO; +NAPR-688 PO; +POLY17PO6 PO
[2016-08-25] MEDS ORDERED: AZIT250T94 PO (17:22)
[2016-08-25] MEDS ORDERED: IBUP-1542 PO (17:23)
--- NOTE | 2016-08-25 19:30 | ERD ---
ER Documentation Chief Complaint Date/Time DATE: 08/25/16 TIME: 19:26 Chief Complaint SORE THROAT X 2 DAYS HPI This patient is a 61-year-old female with no significant medical history presenting to the emergency department for sore throat ongoing for the past 2 days. Additionally the patient has had nonproductive cough and bilateral earache. The patient took leftover amoxicillin 4 tablets from a previous prescription. She has also been taking [id number] ibuprofen with mild relief of symptoms. The patient denies fevers, chills, urinary symptoms, vomiting, diarrhea, or other symptoms at this time. ROS All systems reviewed and are negative except as per history of present illness. Medications Home Meds Active Scripts Ibuprofen* (Motrin*) 600 Mg Tab, 600 MG PO Q6, #30 TAB Prov:PAMELLA STONE PA-C 08/25/16 Azithromycin* (Zithromax*) 250 Mg Tablet, 250 MG PO .ZPACK DIRECTED, #6 TAB TAKE 500 MG (2 TABS) THE FIRST DAY THEN 250 MG (1 TAB) DAYS 2-5 Prov:PAMELLA STONE PA-C 08/25/16 Magnesium Citrate* (Magnesium Citrate*) 296 Ml Solution, 296 ML PO ONCE, #1 BOTTLE Prov:ABESHASHA DO 06/28/16 Polyethylene Glycol* (Miralax*) 17 Gm Powd.pack, 17 GM PO BID, #60 PACKET Prov:ABESHASHA DO 06/28/16 Benzonatate* (Tessalon Perle*) 100 Mg Capsule, 100 MG PO Q8H Y for COUGH, #14 CAP Prov:SHASHA FISH DO 06/28/16 Levofloxacin* (Levaquin*) 500 Mg Tablet, 500 MG PO DAILY for 7 Days, TAB Prov:SHASHA FISH DO 06/28/16 Naproxen* (Naproxen*) 500 Mg Tablet, 500 MG PO BID Y for PAIN, #6 TAB Prov:SHASHA FISH DO 06/28/16 Hydrocodone/Acetaminophen ([place] 5-325 Tablet) 1 Each Tablet, 1 EACH PO Q6, #14 TAB Prov:SHASHA FISH DO 06/28/16 Ranitidine Hcl* (Zantac*) 150 Mg Tablet, 150 MG PO BID Y for EPIGASTRIC PAIN, # 30 TAB Prov:LEEANNE HARVEY DO 06/20/16 Reported Medications Oxycodone HCl/Acetaminophen (Percocet 10-325 mg Tablet) 1 Each Tablet, 2 EACH PO BID, TAB 06/20/16 Lorazepam* (Lorazepam*) 1 Mg Tablet, 1 MG PO HS, #30 TAB 06/20/16 Insulin Glargine* (Lantus*) 100 Unit/Ml Soln, 40 UNIT SC QHS, #1 VIAL 06/20/16 Bupropion Hcl* (Wellbutrin XL*) 300 Mg Tab.sr.24h, 300 MG PO TID, TAB.SA 06/20/16 Sitagliptin* (Januvia*) 25 Mg Tablet, 25 MG PO DAILY, #30 TAB 09/15/15 Pantoprazole* (Protonix*) 40 Mg Tablet.dr, 40 MG PO DAILY, TAB 09/15/15 Allergies Allergies: Coded Allergies: No Known Allergy (Unverified , 06/27/16) PMhx/Soc History of Surgery: Yes (HYSTERECTOMY, APPENDECTOMY) Anesthesia Reaction: No Hx Neurological Disorder: No Hx Respiratory Disorders: Yes (PNA, Bronchitis) Hx Cardiac Disorders: Yes (htn) Hx Psychiatric Problems: Yes (depression) Hx Miscellaneous Medical Probl: Yes (CHRONIC PAIN SYNDROME, CERVICAL CA, FIBROMYALGIA, DEPRESSION, DM, PNA) Hx Alcohol Use: No Hx Substance Use: No Hx Tobacco Use: No FmHx Noncontributory for chief complaint Physical Exam Vitals Vital Signs Date Time Temp Pulse Resp B/P Pulse Ox O2 Delivery O2 Flow Rate FiO2 08/25/16 17:07 98.0 112 18 130/83 99 Physical Exam Const: The patient is resting comfortably in no acute distress. Head: Atraumatic Eyes: Normal Conjunctiva ENT: Normal External Ears, Nose and Mouth. There is mild tonsillar hypertrophy, erythema, and scant exudate. There is no uvular deviation and the airway is clear. Neck: Full range of motion..~ No meningismus. Resp: Clear to auscultation bilaterally Cardio: Regular rate and rhythm, no murmurs Abd: Soft, non tender, non distended. Normal bowel sounds Skin: No petechiae or rashes Back: No midline or flank tenderness Ext: No cyanosis, or edema Neur: Awake and alert Psych: Normal Mood and Affect Procedures/MDM 61-year-old female presents to the emergency department secondary to complaints of sore throat and cough. On physical examination the patient's vitals are within normal limits except pulse is slightly elevated at 112 which may be secondary to pain. Examination of the throat shows bilateral tonsillar hypertrophy with scant exudate concerning for pharyngitis. A low suspicion for peritonsillar abscess, retropharyngeal abscess, septicemia, or other emergent conditions. Patient stable for outpatient management with a prescription for azithromycin and ibuprofen. The patient agrees with the discharge plan and diagnosis. All questions and concerns were addressed. Strict ER return precautions discussed and the patient demonstrates good understanding. Patient is to follow up with their primary care physician in the next 1-2 days. Departure Diagnosis: Primary Impression: Pharyngitis Pharyngitis/tonsillitis etiology: unspecified etiology Qualified Code: J02.9 - Pharyngitis, unspecified etiology Additional Impression: Sore throat Condition: Fair Patient Instructions: Self-Care for Sore Throats Additional Instructions: No mas mejor en 2-3 velazquez, regresar. Mas peor en 24 horas, regresear rapidamente. Ir a doctor primario in 5-7 velazquez. Usar instrucciones cuando nicholas medicamento. PAMELLA STONE PA-C Aug 25, 2016 19:30
== END 2016-08-25 17:23 | disposition home or self-care (01) ==
LOC: E/R 17:05
DX: J02.9 Acute pharyngitis, unspecified (principal); I10 Essential (primary) hypertension; E11.9 Type 2 diabetes mellitus without complications; Z85.41 Personal history of malignant neoplasm of cervix uteri; Z79.4 Long term (current) use of insulin
CPT/HCPCS: 99283

== ENCOUNTER 2016-12-23 14:47 | Emergency (ER) | payer BC ==
[~2016-12-23] VITALS: Ht 157.5 cm; Wt 82.0 kg
[~2016-12-23 14:47] MED LIST changes: +AZIT250T94 PO; +IBUP-1542 PO
[2016-12-23 14:56] VITALS: Ht 157.5 cm; Wt 82.0 kg
[2016-12-23] MEDS ORDERED: METOCLOPRAMIDE 10 MG INJ IV STA (17:59)
[2016-12-23] MEDS ORDERED: SOD CHLORIDE 0.9% 1,000 ML IV STA (17:59)
[2016-12-23] MEDS ORDERED: KETOROLAC 30 MG INJ IV STA (17:59)
[2016-12-23] MEDS ORDERED: DIPHENHYDRAMINE 50 MG INJ IV ONE (18:00)
--- NOTE | 2016-12-23 18:09 | ERA ---
ER Documentation Chief Complaint Date/Time DATE: 12/23/16 TIME: 18:00 Chief Complaint AP X 6 HRS HPI This is a 61-year-old female with a past medical history of fibromyalgia, chronic abdominal pains, previous total abdominal hysterectomy and appendectomy , chronic left lower extremity lymphedema who is presenting with acute onset right lower quadrant sharp stabbing abdominal pain since last night with nausea but no vomiting. The patient denies diarrhea, but she does endorse soft stools. She has not had any constipation. She also endorses suprapubic discomfort and pain with urination. She denies any fever or chills. She does have a mild general headache but no photophobia or phonophobia. She denies chest pain or trouble breathing. She does not have any focal deficits. ROS All systems reviewed and are negative except as per history of present illness. Medications Home Meds Active Scripts Ibuprofen* (Motrin*) 800 Mg Tab, 800 MG PO Q8 Y for PAIN, #20 TAB Prov:YAZMIN BROCK MD 12/23/16 Sulfamethoxazole/Trimethoprim* (Bactrim Ds* Tablet) 1 Each Tablet, 1 TAB PO BID , #20 TAB Prov:YAZMIN BROCK MD 12/23/16 Ibuprofen* (Motrin*) 600 Mg Tab, 600 MG PO Q6, #30 TAB Prov:PAMELLA STONE PA-C 08/25/16 Azithromycin* (Zithromax*) 250 Mg Tablet, 250 MG PO .ZPACK DIRECTED, #6 TAB TAKE 500 MG (2 TABS) THE FIRST DAY THEN 250 MG (1 TAB) DAYS 2-5 Prov:PAMELLA STONE PA-C 08/25/16 Magnesium Citrate* (Magnesium Citrate*) 296 Ml Solution, 296 ML PO ONCE, #1 BOTTLE Prov:SHASHA FISH DO 06/28/16 Polyethylene Glycol* (Miralax*) 17 Gm Powd.pack, 17 GM PO BID, #60 PACKET Prov:SHASHA FISH DO 06/28/16 Benzonatate* (Tessalon Perle*) 100 Mg Capsule, 100 MG PO Q8H Y for COUGH, #14 CAP Prov:SHASHA FISH DO 06/28/16 Levofloxacin* (Levaquin*) 500 Mg Tablet, 500 MG PO DAILY for 7 Days, TAB Prov:SHASHA FISH DO 06/28/16 Naproxen* (Naproxen*) 500 Mg Tablet, 500 MG PO BID Y for PAIN, #6 TAB Prov:SHASHA FISH DO 06/28/16 Hydrocodone/Acetaminophen ([place] 5-325 Tablet) 1 Each Tablet, 1 EACH PO Q6, #14 TAB Prov:SHASHA FISH DO 06/28/16 Ranitidine Hcl* (Zantac*) 150 Mg Tablet, 150 MG PO BID Y for EPIGASTRIC PAIN, # 30 TAB Prov:LEEANNE HARVEY DO 06/20/16 Reported Medications Oxycodone HCl/Acetaminophen (Percocet 10-325 mg Tablet) 1 Each Tablet, 2 EACH PO BID, TAB 06/20/16 Lorazepam* (Lorazepam*) 1 Mg Tablet, 1 MG PO HS, #30 TAB 06/20/16 Insulin Glargine* (Lantus*) 100 Unit/Ml Soln, 40 UNIT SC QHS, #1 VIAL 06/20/16 Bupropion Hcl* (Wellbutrin XL*) 300 Mg Tab.sr.24h, 300 MG PO TID, TAB.SA 06/20/16 Sitagliptin* (Januvia*) 25 Mg Tablet, 25 MG PO DAILY, #30 TAB 09/15/15 Pantoprazole* (Protonix*) 40 Mg Tablet.dr, 40 MG PO DAILY, TAB 09/15/15 Allergies Allergies: Coded Allergies: No Known Allergy (Unverified , 06/27/16) PMhx/Soc History of Surgery: Yes (HYSTERECTOMY, APPENDECTOMY) Anesthesia Reaction: No Hx Neurological Disorder: No Hx Respiratory Disorders: Yes (PNA, Bronchitis) Hx Cardiac Disorders: Yes (htn) Hx Psychiatric Problems: Yes (depression) Hx Miscellaneous Medical Probl: Yes (CHRONIC PAIN SYNDROME, CERVICAL CA, FIBROMYALGIA, DEPRESSION, DM, PNA) Hx Alcohol Use: No Hx Substance Use: No Hx Tobacco Use: No Smoking Status: Never smoker FmHx Family History: diabetes Physical Exam Vitals Vital Signs Date Time Temp Pulse Resp B/P Pulse Ox O2 Delivery O2 Flow Rate FiO2 12/23/16 19:19 98.2 81 20 147/81 99 Room Air 12/23/16 14:56 98.8 112 20 151/72 99 Physical Exam Const: Emotional distress 2/2 pain Head: Atraumatic Eyes: Normal Conjunctiva ENT: Normal External Ears, Nose and Mouth. Neck: Full range of motion..~ No meningismus. Resp: Clear to auscultation bilaterally Cardio: Regular rate and rhythm, no murmurs Abd: Obese, Soft, non distended, RLQ tenderness only to deep palpation. Normal bowel sounds Skin: No petechiae or rashes Back: No midline or flank tenderness Ext: No cyanosis, or edema Neur: Awake and alert Psych: Anxious, visibly upset Result Diagram: 12/23/16 1800 12/23/16 1800 Results 24 hrs Laboratory Tests Test 12/23/16 17:26 12/23/16 18:00 Urine Color YELLOW Urine Clarity SLIGHTLY CLOUDY Urine pH 6.0 Urine Specific [place] 1.005 Urine Ketones NEGATIVEmg/dL Urine Nitrite NEGATIVEmg/dL Urine Bilirubin NEGATIVEmg/dL Urine Urobilinogen NEGATIVEmg/dL Urine Leukocyte Esterase 3+[place]/ul Urine Microscopic RBC 2/HPF Urine Microscopic WBC > 182/HPF Urine Bacteria MODERATE/HPF Urine Hemoglobin 2+mg/dL Urine Glucose NEGATIVEmg/dL Urine Total Protein 2+mg/dl White Blood Count 14.210^3/ul Red Blood Count 4.3610^6/ul Hemoglobin 12.3g/dl Hematocrit 36.4% Mean Corpuscular Volume 83.5fl Mean Corpuscular Hemoglobin 28.2pg Mean Corpuscular Hemoglobin Concent 33.8g/dl Red Cell Distribution Width 13.4% Platelet Count 98054^3/UL Mean Platelet Volume 11.0fl Neutrophils % 78.2% Lymphocytes % 14.0% Monocytes % 6.3% Eosinophils % 0.1% Basophils % 0.5% Nucleated Red Blood Cells % 0.0/100WBC Neutrophils # (Manual) 11.110^3/ul Lymphocytes # 2.010^3/ul Monocytes # 0.910^3/ul Eosinophils # 0.010^3/ul Basophils # 0.110^3/ul Nucleated Red Blood Cells # 0.010^3/ul Sodium Level 143mmol/L Potassium Level 3.8mmol/L Chloride Level 102mmol/L Carbon Dioxide Level 22mmol/L Anion Gap 23 Blood Urea Nitrogen 27mg/dl Creatinine 1.41mg/dl Glucose Level 159mg/dl Calcium Level 9.1mg/dl Total Bilirubin 0.0mg/dl Direct Bilirubin 0.00mg/dl Indirect Bilirubin 0.0mg/dl Aspartate Amino Transf (AST/SGOT) 38IU/L Alanine Aminotransferase (ALT/SGPT) 39IU/L Alkaline Phosphatase 74IU/L Total Protein 8.4g/dl Albumin 4.4g/dl Globulin 4.00g/dl Albumin/Globulin Ratio 1.10 Lipase 168U/L Current Medications Medications (Trade) Dose Ordered Sig/Nuno Route PRN Reason Start Time Stop Time Status Last Admin Dose Admin Sodium Chloride (NS) 1,000 ml @ 1,000 mls/hr Q1H STAT IV 12/23/16 17:59 12/23/16 18:58 DC 12/23/16 18:03 Metoclopramide HCl (Reglan) 10 mg ONCE STAT IV 12/23/16 17:59 12/23/16 18:01 DC 12/23/16 18:03 Ketorolac Tromethamine (Toradol) 30 mg ONCE STAT IV 12/23/16 17:59 12/23/16 18:01 DC 12/23/16 18:03 Diphenhydramine HCl (Benadryl) 25 mg ONCE ONCE IV 12/23/16 18:00 12/23/16 18:01 DC 12/23/16 18:03 Trimethoprim/ Sulfamethoxazole (Bactrim (Ds)) 1 tab ONCE ONCE PO 12/23/16 21:00 12/23/16 21:01 DC Procedures/MDM The patient's presenting with abdominal pain. She does have a history of fibromyalgia, and she does endorse exacerbation of the same pain chronically. She takes Percocet at home, but she does not take it routinely. She is allowed to take it 3 times a day, but she is only taking it once last night. Abdominal workup will be performed. Patient's blood work is obtained and reviewed. He revealed a leukocytosis with a mild left shift. The patient is afebrile, but her pain could be attributed to an infection. The patient's creatinine is mildly elevated at 1.4, but it is around her baseline. Patient's urinalysis was significant for 3+ leukocyte esterase, greater than 180 white cells and bacteria. I am concerned about a urinary tract infection in this patient. Given her pain, a CT of the abdomen and pelvis was performed that revealed a following: PROCEDURE: CT Abdomen and Pelvis without contrast. CLINICAL INDICATION: Pain. FINDINGS: There is moderate bilateral hydronephrosis and right greater than left diffuse hydroureter to the level urinary bladder. There is no obstructing calculus within the ureters. There is mild diffuse urinary bladder wall thickening, unchanged. There are multiple pelvic surgical clips and pelvic infiltration and central presacral space, similar to prior study. There is no discrete pelvic mass. There is no intraluminal calculus within urinary bladder. Neither the uterus nor ovaries are not distinctly visualized. There is no obstruction or ileus. The appendix is visualized. There is no evidence for appendicitis.. There is no evidence for diverticulitis. There is no free fluid. The liver is enlarged at 21 cm length. No intrahepatic lesions are identified. There are multiple small gallstones within the gallbladder. The gallbladder is otherwise normal in appearance. There is no definite biliary ductal dilation. Pancreas is normal in appearance. The spleen is unremarkable.. There is a 1.6 cm slightly hypodense partially calcified right adrenal nodule, unchanged.. The aorta is normal caliber. Atherosclerotic vascular calcifications are present. Uterus unremarkable. The ovaries are not well characterized. Limited evaluation of the lung bases is unremarkable. There are degenerative changes of the lumbar spine. There is unchanged 7 mm grade 1 anterior spine listhesis of L5 on S1 with associated facet degenerative changes. There is an unchanged prominence Schmorl's node superior endplate of T10. There is unchanged focal sclerosis involving the right ilium. IMPRESSION: 1. Cholelithiasis. No CT evidence for acute cholecystitis or biliary obstruction. 2. Moderate bilateral hydronephrosis and right greater than left hydroureter to the level urinary bladder. Diffuse urinary bladder wall thickening and postoperative changes within the pelvis. Appearance is suggestive of postoperative scarring causing distal ureteral obstruction. Overall appearance of the pelvis is unchanged. 3. Neither uterus or ovaries identified compatible surgical removal. 4. Redemonstrated sclerosis of the right ilium which may be related to prior radiation therapy, unchanged. 5. Unchanged complex right adrenal nodule. 6. Hepatomegaly. 7. Unchanged grade 1 anterior spine listhesis of L5 on S1 with degenerative changes lumbar spine. The right otherwise no change. RPTAT: HMVK .Vin Frederick MD, MD Date Time Electronically viewed and signed by .Vin Frederick MD, MD on 12/23/2016 19:05 The patient was given IV fluids, Toradol, Reglan and Benadryl in the emergency department with complete resolution of her pain. The patient's creatinine is not above baseline, and I do not suspect pyelonephritis at this time. She has never had any flank pain associated with this. Patient does appear to have issues with her ureters relating to her previous surgeries causing moderate bilateral hydronephrosis. This will need to be evaluated as an outpatient. The patient was made aware of this. The patient will be given a prescription for Bactrim for her infection. She also be given a prescription for ibuprofen. At this time, the patient is stable for discharge.Her primary care physician may need to coordinate care to have her ureters evaluated. The patient needs follow-up with her primary care doctor for reevaluation of her UTI as well. She will be given precautions with which to return to the emergency department, Which would include fever, chills, flank pain, changes in her urine, any worsening pain or any other concerns. Departure Diagnosis: Primary Impression: UTI (urinary tract infection) Qualified Code: N39.0 - Urinary tract infection without hematuria, site unspecified Additional Impressions: Hydronephrosis Qualified Code: N13.30 - Hydronephrosis, unspecified hydronephrosis type Abdominal pain Qualified Code: R10.30 - Lower abdominal pain Condition: YAZMIN Lange MD Dec 23, 2016 18:09
[2016-12-23 18:17] LABS: BASOPHIL # 0.1 10^3/ul (0.0-0.1); BASOPHILS % 0.5 % (0.0-2.0); EOSINOPHILS % 0.1 % (0.0-7.0); HEMATOCRIT 36.4 % (37.0-47.0); HEMOGLOBIN 12.3 g/dl (12.0-16.0); MEAN CORPUSCULAR HEMOGLOBIN 28.2 pg (29.0-33.0); MEAN CORPUSCULAR HGB CONC 33.8 g/dl (32.0-37.0); MEAN CORPUSCULAR VOLUME 83.5 fl (82.0-101.0); MONOCYTE # 0.9 10^3/ul (0.3-0.9); MONOCYTES % 6.3 % (0.0-11.0); NEUTROPHILS % 78.2 % (39.0-77.0); PLATELET COUNT 260 10^3/UL (140-415); RED BLOOD COUNT 4.36 10^6/ul (4.20-5.40); RED CELL DISTRIBUTION WIDTH 13.4 % (11.5-14.5); WHITE BLOOD COUNT 14.2 10^3/ul (4.8-10.8)
[2016-12-23 18:29] LABS: ALBUMIN 4.4 g/dl (3.3-4.9); ALBUMIN/GLOBULIN RATIO 1.1; CALCIUM 9.1 mg/dl (8.4-10.2); CREATININE 1.41 mg/dl (0.44-1.00); POTASSIUM 3.8 mmol/L (3.5-5.1); TOTAL PROTEIN 8.4 g/dl (6.1-8.1)
[2016-12-23 18:37] LABS: ADD UMIC YES; UR ASCORBIC ACID NEGATIVE (NEGATIVE); UR BACTERIA MODERATE /HPF (NONE SEEN); UR BILIRUBIN (Dip) NEGATIVE (NEGATIVE); UR BLOOD (Dip) 2+ mg/dL (NEGATIVE); UR CLARITY SLIGHTLY CLOUDY (CLEAR); UR COLOR YELLOW (YELLOW); UR GLUCOSE (Dip) NEGATIVE (NEGATIVE); UR KETONES (Dip) NEGATIVE (NEGATIVE); UR LEUKOCYTE ESTERASE (Dip) 3+ Leu/ul (NEGATIVE); UR NITRITE (Dip) NEGATIVE (NEGATIVE); UR RBC 2 /HPF (0-5); UR SPECIFIC GRAVITY (Dip) 1.005 (1.003-1.030); UR TOTAL PROTEIN (Dip) 2+ mg/dl (NEGATIVE); UR UROBILINOGEN (Dip) NEGATIVE (NEGATIVE)
--- NOTE | 2016-12-23 19:05 | RADRPT ---
PROCEDURE: CT Abdomen and Pelvis without contrast. CLINICAL INDICATION: Pain. TECHNIQUE: CT scan of the abdomen and pelvis was performed on a multidetector slice CT scanner. No intravenous contrast material was utilized. Sagittal and coronal reformatted images were obtained fr om the axial source images. Images were reviewed on a high-resolution PACS workstation. Exam CTDlvol = mGy and DLP = Gy-cm. One of the following 3 dose reduction techniques were used: Automated expo sure control; adjustment of the mA and/or kV according to patient size; or use of iterative reconstr uction technique. COMPARISON: None. FINDINGS: There is moderate bilateral hydronephrosis and right greater than left diffuse hydroureter to the le seferino urinary bladder. There is no obstructing calculus within the ureters. There is mild diffuse ur inary bladder wall thickening, unchanged. There are multiple pelvic surgical clips and pelvic infil tration and central presacral space, similar to prior study. There is no discrete pelvic mass. Ther e is no intraluminal calculus within urinary bladder. Neither the uterus nor ovaries are not distin ctly visualized. There is no obstruction or ileus. The appendix is visualized. There is no evidence for appendiciti s.. There is no evidence for diverticulitis. There is no free fluid. The liver is enlarged at 21 cm length. No intrahepatic lesions are identified. There are multiple sm all gallstones within the gallbladder. The gallbladder is otherwise normal in appearance. There is no definite biliary ductal dilation. Pancreas is normal in appearance. The spleen is unremarkable.. There is a 1.6 cm slightly hypodense partially calcified right adrenal nodule, unchanged.. The aorta is normal caliber. Atherosclerotic vascular calcifications are present. Uterus unremarkable. The ovaries are not well characterized. Limited evaluation of the lung bases is unremarkable. There are degenerative changes of the lumbar spine. There is unchanged 7 mm grade 1 anterior spine l isthesis of L5 on S1 with associated facet degenerative changes. There is an unchanged prominence S chmorl's node superior endplate of T10. There is unchanged focal sclerosis involving the right ilium . IMPRESSION: 1. Cholelithiasis. No CT evidence for acute cholecystitis or biliary obstruction. 2. Moderate bilateral hydronephrosis and right greater than left hydroureter to the level urinary b ladder. Diffuse urinary bladder wall thickening and postoperative changes within the pelvis. Appea janel is suggestive of postoperative scarring causing distal ureteral obstruction. Overall appearan ce of the pelvis is unchanged. 3. Neither uterus or ovaries identified compatible surgical removal. 4. Redemonstrated sclerosis of the right ilium which may be related to prior radiation therapy, unc hanged. 5. Unchanged complex right adrenal nodule. 6. Hepatomegaly. 7. Unchanged grade 1 anterior spine listhesis of L5 on S1 with degenerative changes lumbar spine. The right otherwise no change. RPTAT: HMVK .Vin Frederick MD, Date Time Electronically viewed and signed by .Vin Frederick MD, on 12/23/2016 19:05 .K/
[2016-12-23 19:19] VITALS: TEMP 98.2
[2016-12-23 20:30] VITALS: BP 107/60; PULSE 85; RESP 20
[2016-12-23] MEDS ORDERED: SULF1TAB31 PO (20:48)
[2016-12-23] MEDS ORDERED: IBUP800T25 PO (20:48)
[2016-12-23] MEDS ORDERED: TRIMETHOPRIM/SULFAMETHOX (DS) TAB PO ONE (21:00)
== END 2016-12-23 21:08 | disposition home or self-care (01) ==
LOC: E/R 14:47
DX: N39.0 Urinary tract infection, site not specified (principal); N13.30 Unspecified hydronephrosis; I10 Essential (primary) hypertension; E11.9 Type 2 diabetes mellitus without complications; R11.0 Nausea; Z79.4 Long term (current) use of insulin; Z79.84 Long term (current) use of oral hypoglycemic drugs; Z85.41 Personal history of malignant neoplasm of cervix uteri
CPT/HCPCS: 36415; 74176; 80053; 81001; 83690; 85025; 96374; 96375; 99285; J1200; J1885; J2765; J7030; Z7610

== ENCOUNTER 2017-01-12 18:55 | Inpatient (IN) | payer BC ==
[~2017-01-12] VITALS: Ht 154.9 cm; Wt 89.0 kg
[~2017-01-12 18:55] MED LIST changes: +IBUP800T25 PO; +SULF1TAB31 PO
[2017-01-12] MEDS ORDERED: SOD CHLORIDE 0.9% 2,000 ML IV STA (19:04)
[2017-01-12 19:15] LABS: BASOPHIL # 0.1 10^3/ul (0.0-0.1); BASOPHILS % 0.6 % (0.0-2.0); EOSINOPHILS # 0.1 10^3/ul (0.0-0.5); EOSINOPHILS % 1.2 % (0.0-7.0); HEMOGLOBIN 12.3 g/dl (12.0-16.0); LYMPHOCYTES # 3.5 10^3/ul (0.8-2.9); LYMPHOCYTES % 31.8 % (15.0-51.0); MEAN CORPUSCULAR HEMOGLOBIN 27.7 pg (29.0-33.0); MEAN CORPUSCULAR HGB CONC 32.4 g/dl (32.0-37.0); MEAN CORPUSCULAR VOLUME 85.6 fl (82.0-101.0); MEAN PLATELET VOLUME 10.7 fl (7.4-10.4); MONOCYTE # 0.7 10^3/ul (0.3-0.9); NEUTROPHIL # 6.5 10^3/ul (1.6-7.5); NEUTROPHILS % 59.9 % (39.0-77.0); PLATELET COUNT 209 10^3/UL (140-415); RED BLOOD COUNT 4.44 10^6/ul (4.20-5.40); RED CELL DISTRIBUTION WIDTH 14.1 % (11.5-14.5); WHITE BLOOD COUNT 10.9 10^3/ul (4.8-10.8)
[2017-01-12] MEDS ORDERED: morphine 4 MG/ML VIAL IV STA ×2 (19:38→21:26)
[2017-01-12 19:42] LABS: ALANINE AMINOTRANSFERASE 44 IU/L (13-69); ALBUMIN 4.2 g/dl (3.3-4.9); ALKALINE PHOSPHATASE 98 IU/L (42-121); ANION GAP 17 (8-16); ASPARTATE AMINO TRANSFERASE 41 IU/L (15-46); BLOOD UREA NITROGEN 25 mg/dl (7-20); CALCIUM 9.1 mg/dl (8.4-10.2); CARBON DIOXIDE 21 mmol/L (21-31); CHLORIDE 103 mmol/L (97-110); CREATININE 1.43 mg/dl (0.44-1.00); GLUCOSE 265 mg/dl (70-220); POTASSIUM 4.1 mmol/L (3.5-5.1); SODIUM 137 mmol/L (135-144); TOTAL PROTEIN 7.7 g/dl (6.1-8.1)
[2017-01-12 19:45] LABS: POSITIVE DIFF N
--- NOTE | 2017-01-12 19:48 | RADRPT ---
PROCEDURE: XR Chest. CLINICAL INDICATION: Chest pain. TECHNIQUE: PA and Lateral views of the chest were obtained. COMPARISON: Chest dated 06/27/2016. FINDINGS: Transcutaneous cardiac pacing pads over the central and left paracentral lower chest. Mild cardiomeg wes. Mild pulmonary vascular ingestion. Lungs otherwise clear. No signs of pleural fluid or pneumothorax are seen. The osseous structures and soft tissues are unre markable. IMPRESSION: Mild cardiomegaly and mild pulmonary vascular congestion. RPTAT: [facility] Physician Rashid Date Time Electronically viewed and signed by Physician Rashid on 01/12/2017 19:48 RS/
[2017-01-12] MEDS ORDERED: ASPIRIN 81 MG TAB ONE (19:53)
[2017-01-12 19:54] LABS: TROPONIN-I < 0.012 ng/ml (0.00-0.12)
[2017-01-12] MEDS ORDERED: ASPIRIN 325 MG TAB PO ONE (20:00)
[2017-01-12] MEDS ORDERED: ONDANSETRON 4 MG INJ IV STA (20:09)
--- NOTE | 2017-01-12 21:11 | ERA ---
ER Documentation Chief Complaint Date/Time DATE: 01/12/17 TIME: 21:01 Chief Complaint BIBA x palpitations an hr ago HPI This is a 61-year-old female with a past medical history of diabetes, GERD, uterine cancer status post chemoradiation complicated by chronic swelling of the left lower extremity who is presenting in SVT. The patient reports having a cough with fatigue that began this morning. Approximately 30 minutes prior to arrival to the emergency department, she developed sudden onset diaphoresis left-sided sharp stabbing chest pain and feelings of anxiety. She called the paramedics who found her to be in SVT. They tried vagal maneuvers, but they were not successful. They are unable to obtain access prior to arrival. The patient received 2 baby aspirin and nitro prior to arrival that did not improve her symptoms. The patient denies fever, but she has felt cold intermittently throughout the day. She denies headache or vision changes. She denies any focal deficits. She has no new weakness or numbness or tingling to the face or extremities. She does endorse bilateral lower extremity peripheral neuropathy that is unchanged presently. She does describe shortness of breath with her chest pain. She denies abdominal pain. She denies any changes to bowel movements urination ROS All systems reviewed and are negative except as per history of present illness. Medications Home Meds Active Scripts Ibuprofen* (Motrin*) 800 Mg Tab, 800 MG PO Q8 Y for PAIN, #20 TAB Prov:YAZMIN BROCK MD 12/23/16 Sulfamethoxazole/Trimethoprim* (Bactrim Ds* Tablet) 1 Each Tablet, 1 TAB PO BID , #20 TAB Prov:YAZMIN BROCK MD 12/23/16 Ibuprofen* (Motrin*) 600 Mg Tab, 600 MG PO Q6, #30 TAB Prov:PAMELLA STONE PA-C 08/25/16 Azithromycin* (Zithromax*) 250 Mg Tablet, 250 MG PO .BREANNA DIRECTED, #6 TAB TAKE 500 MG (2 TABS) THE FIRST DAY THEN 250 MG (1 TAB) DAYS 2-5 Prov:PAMELLA STONE PA-C 08/25/16 Magnesium Citrate* (Magnesium Citrate*) 296 Ml Solution, 296 ML PO ONCE, #1 BOTTLE Prov:SHASHA FISH DO 06/28/16 Polyethylene Glycol* (Miralax*) 17 Gm Powd.pack, 17 GM PO BID, #60 PACKET Prov:SHASHA FISH DO 06/28/16 Benzonatate* (Tessalon Perle*) 100 Mg Capsule, 100 MG PO Q8H Y for COUGH, #14 CAP Prov:SHASHA FISH DO 06/28/16 Levofloxacin* (Levaquin*) 500 Mg Tablet, 500 MG PO DAILY for 7 Days, TAB Prov:SHASHA FISH DO 06/28/16 Naproxen* (Naproxen*) 500 Mg Tablet, 500 MG PO BID Y for PAIN, #6 TAB Prov:SHASHA IFSH DO 06/28/16 Hydrocodone/Acetaminophen ([place] 5-325 Tablet) 1 Each Tablet, 1 EACH PO Q6, #14 TAB Prov:SHASHA FISH DO 06/28/16 Ranitidine Hcl* (Zantac*) 150 Mg Tablet, 150 MG PO BID Y for EPIGASTRIC PAIN, # 30 TAB Prov:LEEANNE HARVEY DO 06/20/16 Reported Medications Oxycodone HCl/Acetaminophen (Percocet 10-325 mg Tablet) 1 Each Tablet, 2 EACH PO BID, TAB 06/20/16 Lorazepam* (Lorazepam*) 1 Mg Tablet, 1 MG PO HS, #30 TAB 06/20/16 Insulin Glargine* (Lantus*) 100 Unit/Ml Soln, 40 UNIT SC QHS, #1 VIAL 06/20/16 Bupropion Hcl* (Wellbutrin XL*) 300 Mg Tab.sr.24h, 300 MG PO TID, TAB.SA 06/20/16 Sitagliptin* (Januvia*) 25 Mg Tablet, 25 MG PO DAILY, #30 TAB 09/15/15 Pantoprazole* (Protonix*) 40 Mg Tablet.dr, 40 MG PO DAILY, TAB 09/15/15 Allergies Allergies: Coded Allergies: No Known Allergy (Unverified , 06/27/16) PMhx/Soc History of Surgery: Yes (Cervical Ablation,Appy) Anesthesia Reaction: No Hx Neurological Disorder: No Hx Respiratory Disorders: Yes (Sleep Apnea) Hx Cardiac Disorders: No Hx Psychiatric Problems: No Hx Miscellaneous Medical Probl: Yes (Cervical CA,DM,HTN) Hx Alcohol Use: No Hx Substance Use: No Hx Tobacco Use: No Smoking Status: Never smoker FmHx Family History: diabetes, No coronary disease Physical Exam Vitals Vital Signs Date Time Temp Pulse Resp B/P Pulse Ox O2 Delivery O2 Flow Rate FiO2 01/12/17 21:00 97.9 100 25 149/85 99 Nasal Cannula 2.0 01/12/17 20:00 109 20 174/95 100 Nasal Cannula 2.0 01/12/17 19:10 Nasal Cannula 2 01/12/17 19:05 98.9 247 22 176/72 100 Physical Exam Const: Anxious, Mild distress, Well-developed, well-nourished Head: Atraumatic Eyes: Normal Conjunctiva ENT: Normal External Ears, Nose and Mouth. Neck: Full range of motion. ~ No meningismus. Resp: Clear to auscultation bilaterally Cardio: Tachycardic, regular rhythm, no murmurs Abd: Soft, non tender, distended/obese. Normal bowel sounds Skin: No petechiae or rashes Back: No midline or flank tenderness Ext: No cyanosis, LLE edema (reportedly chronic) Neur: Awake and alert Psych: Normal Mood and Affect Result Diagram: 01/12/17189901/12/171899 Results 24 hrs Laboratory Tests Test 01/12/17 19:00 White Blood Count 10.910^3/ul Red Blood Count 4.4410^6/ul Hemoglobin 12.3g/dl Hematocrit 38.0% Mean Corpuscular Volume 85.6fl Mean Corpuscular Hemoglobin 27.7pg Mean Corpuscular Hemoglobin Concent 32.4g/dl Red Cell Distribution Width 14.1% Platelet Count 46534^3/UL Mean Platelet Volume 10.7fl Neutrophils % 59.9% Lymphocytes % 31.8% Monocytes % 6.0% Eosinophils % 1.2% Basophils % 0.6% Nucleated Red Blood Cells % 0.0/100WBC Neutrophils # 6.510^3/ul Lymphocytes # 3.510^3/ul Monocytes # 0.710^3/ul Eosinophils # 0.110^3/ul Basophils # 0.110^3/ul Nucleated Red Blood Cells # 0.010^3/ul Sodium Level 137mmol/L Potassium Level 4.1mmol/L Chloride Level 103mmol/L Carbon Dioxide Level 21mmol/L Anion Gap 17 Blood Urea Nitrogen 25mg/dl Creatinine 1.43mg/dl Glucose Level 265mg/dl Calcium Level 9.1mg/dl Total Bilirubin 0.0mg/dl Direct Bilirubin 0.00mg/dl Indirect Bilirubin 0.0mg/dl Aspartate Amino Transf (AST/SGOT) 41IU/L Alanine Aminotransferase (ALT/SGPT) 44IU/L Alkaline Phosphatase 98IU/L Troponin I < 0.012ng/ml Total Protein 7.7g/dl Albumin 4.2g/dl Globulin 3.50g/dl Albumin/Globulin Ratio 1.20 Current Medications Medications (Trade) Dose Ordered Sig/Unno Route PRN Reason Start Time Stop Time Status Last Admin Dose Admin Sodium Chloride (NS) 2,000 ml @ 1,000 mls/hr Q2H STAT IV 01/12/17 19:04 01/12/17 21:03 DC 01/12/17 19:29 Morphine Sulfate (morphine) 4 mg ONCE STAT IV 01/12/17 19:38 01/12/17 19:41 DC 01/12/17 19:54 Aspirin (Aspirin) 325 mg ONCE ONCE PO 01/12/17 20:00 01/12/17 20:01 DC 01/12/17 19:54 Aspirin (Aspirin) 81 mg STK-MED ONCE .ROUTE 01/12/17 19:53 01/12/17 19:54 DC Ondansetron HCl (Zofran Inj) 4 mg ONCE STAT IV 01/12/17 20:09 01/12/17 20:18 DC 01/12/17 20:30 Procedures/MDM MDM The patient presents in SVT. She is tachycardic to a proximally 240. IV access was initiated and IV fluids were started immediately. Vagal maneuvers were successful in breaking the SVT. The patient still has a mild tachycardia that will need to be further elucidated. The patient also endorses persistent chest pain and shortness of breath. A cardiac workup will be performed. Labs The patient has a mild leukocytosis. She is afebrile, and I do not suspect a systemic infection. This may be reactive. The patient is not anemic. The patient's CMP reveals elevated sugar but no significant anion gap. I do not believe she is in DKA. Her CO2 is unremarkable. The patient does have an elevated BUN and creatinine, but it is around her baseline. The patient's troponin is negative. A TSH and free T4 are currently pending. The patient's urinalysis will also be sent off, but is currently pending as well. CXR IMPRESSION: Mild cardiomegaly and mild pulmonary vascular congestion Electronically viewed and signed by Physician Rashid on 01/12/2017 19:48 EKG Read by me Rate/Rhythm: Significant tachycardia at 239 beats per minute, concerning for SVT Intervals: P waves not seen, QRS is narrow complex, QTc is unremarkable Jay: Normal Impression: SVT, no evidence of ischemia Repeat EKG Read by me Rate/Rhythm: Sinus tachycardia at 111 bpm, regular rhythm intervals: Normal Jay: Normal Impression: No evidence of ischemia or arrhythmia Treatment/Disposition The patient presents in SVT. This was successfully resolved with vagal maneuvers. She has never had this arrhythmia before, I do believe this requires further workup. The patient also endorses chest pain shortness of breath during this event. She does need a cardiac workup in the hospital. A TSH and free T4 were also sent off to evaluate for any thyroid dysfunction. The patient does endorse a cough with feelings of chills and fatigue at home. She may have a viral illness that could be the ideology of her symptoms as well. The chest x-ray does not demonstrate any signs of pneumonia. A urinalysis will be sent off to look for a UTI. The patient will be admitted to the panel physician for further evaluation and management. Dr. Ibrahim accepted the patient at 9:20 PM on 01/12/2017 as per her insurance. Departure Diagnosis: Primary Impression: SVT (supraventricular tachycardia) Additional Impression: Chest pain Qualified Code: R07.9 - Chest pain, unspecified type Condition: YAZMIN Lange MD Jan 12, 2017 21:10
[2017-01-12] MEDS ORDERED: ACETAMINOPHEN 325 MG TAB PO PRN ×2 (21:30→23:30)
[2017-01-12] MEDS ORDERED: NITROGLYCERIN (SL) 0.4 MG TAB SL ONE (21:30)
[2017-01-12] MEDS ORDERED: ONDANSETRON 4 MG INJ IV PRN (21:30)
[2017-01-12 21:47] LABS: ADD UMIC NO; UR ASCORBIC ACID NEGATIVE (NEGATIVE); UR BILIRUBIN (Dip) NEGATIVE (NEGATIVE); UR BLOOD (Dip) NEGATIVE (NEGATIVE); UR CLARITY CLEAR (CLEAR); UR COLOR YELLOW (YELLOW); UR GLUCOSE (Dip) 1+ mg/dL (NEGATIVE); UR KETONES (Dip) NEGATIVE (NEGATIVE); UR LEUKOCYTE ESTERASE (Dip) NEGATIVE Leu/ul (NEGATIVE); UR NITRITE (Dip) NEGATIVE (NEGATIVE); UR SPECIFIC GRAVITY (Dip) 1.008 (1.003-1.030); UR TOTAL PROTEIN (Dip) NEGATIVE (NEGATIVE); UR UROBILINOGEN (Dip) NEGATIVE (NEGATIVE)
[2017-01-12 22:00] VITALS: TEMP 97.7
[2017-01-12 22:15] VITALS: Ht 154.9 cm; Wt 89.0 kg
[2017-01-12 22:59] VITALS: PULSE 95
[2017-01-13] VITALS (10 sets, daily range): BP systolic 115–142; BP diastolic 59–71; PULSE 71–97; RESP 18–19
[2017-01-13] MEDS ORDERED: GLUCOSE GEL 15 GRAM TUBE PO PRN ×2 (01:00)
[2017-01-13] MEDS ORDERED: GLUCOSE GEL 15 GRAM TUBE BUCCAL PRN (01:00)
[2017-01-13] MEDS ORDERED: DEXTROSE 50% 50 ML SYRINGE IV PRN ×2 (01:00)
[2017-01-13] MEDS ORDERED: GLUCAGON 1 MG INJ IM PRN (01:00)
[2017-01-13 01:16] LABS: CK-MB 0.75 ng/ml (0.0-2.4); TROPONIN-I 0.111 ng/ml (0.00-0.12)
[2017-01-13] MEDS: morphine 2 MG INJ IV PRN ×2 (01:28→06:30)
[2017-01-13] MEDS ORDERED: ACCU-CHEK XX SCH ×2 (02:00)
--- NOTE | 2017-01-13 06:56 | HP ---
Date/Time of Note Date/Time of Note DATE: 01/13/17 TIME: 06:49 Assessment/Plan VTE Prophylaxis VTE Prophylaxis Intervention: heparin Lines/Catheters IV Catheter Type (from Nrs): Saline Lock Urinary Cath still in place: No Assessment/Plan Assessment/Plan ASSESSMENT This is a 61-year-old female with a history of cervical cancer status post hysterectomy and radiation in 1994, chronic pain syndrome, CKD, fibromyalgia, major depressive disorder, diabetes mellitus, chronic left lower extremity swelling secondary to lymphedema and allergic rhinitis and to the ER with a squeezing type chest pain and found to have a SVT, which converted to sinus s/p vagal maneuver PLAN -Continue telemetry monitoring -Trend troponin -Check TSH and thyroid profile -2D echo and cardiology consult -Continue her home medications with adjustment as needed -Pain management HPI/ROS Admit Date/Time Admit Date/Time Jan 12, 2017 at 21:28 Hx of Present Illness This is a 61-year-old female with history of cervical cancer status post hysterectomy and radiation in 1994, chronic pain syndrome, CKD, fibromyalgia, major depressive disorder, diabetes mellitus, chronic left lower extremity swelling secondary to lymphedema and allergic rhinitis who presented to the emergency department complaining of chest pain. Pain is located in the mid chest, with radiation to the left arm and he described as squeezing type. Denied a history of chest pain in the past. When she presented to the ER, she was found to have SVT with a heart rate of almost 250. She converted to sinus and rate controlled with a vagal maneuver. She is currently chest pain-free and her only complaint is chronic left lower extremity pain. . PMH/Family/Social Past Medical History cervical cancer status post hysterectomy and radiation in 1994, chronic pain syndrome, CKD, fibromyalgia, major depressive disorder, diabetes mellitus, chronic left lower extremity swelling secondary to lymphedema and allergic rhinitis Past Surgical History Past Surgical Hx: other (Hysterectomy) Social History Alcohol Use: none Smoking Status: Never smoker Drug Use: none Exam/Review of Systems Vital Signs Vitals Vital Signs Date Time Temp Pulse Resp B/P Pulse Ox O2 Delivery O2 Flow Rate FiO2 01/13/17 04:19 98.3 92 18 115/59 99 01/12/17 22:15 Nasal Cannula 2.0 Intake and Output 01/12/17 01/12/17 01/13/17 15:00 23:00 07:00 Intake Total 2000 ml Balance 2000 ml Exam Constitutional: alert, oriented, well developed Head: atraumatic, normocephalic Eyes: EOMI, PERRL Respiratory: clear to auscultation, normal air movement Cardiovascular: nl pulses, regular rate and rhythm Gastrointestinal: non-tender, soft Extremities: other (Left lower extremity swelling) Labs Result Diagram: 01/12/17189901/12/171899 Medications Medications Current Medications Metoprolol Tartrate (Lopressor) 25 mg Q12 PO ; Start 01/13/17 at 09:00 Aspirin (Aspirin) 81 mg DAILY PO ; Start 01/13/17 at 09:00 Acetaminophen (Tylenol Tab) 650 mg Q6H PRN PO PAIN AND OR ELEVATED TEMP Last administered on 01/12/17 23:17; Admin Dose 650 MG; Start 01/12/17 at 23:30 Morphine Sulfate (morphine) 2 mg Q4H PRN IV PAIN Last administered on 06:30; Admin Dose 2 MG; Start 01/13/17 at 00:00 Diagnostic Test (Pha) (Accu-Chek) 1 ea 02 XX ; Start 01/13/17 at 02:00 Diagnostic Test (Pha) (Accu-Chek) 1 ea 02 XX ; Start 01/13/17 at 02:00 Miscellaneous Information 1 ea NOTE XX ; Start 01/13/17 at 01:00 Glucose (Glutose) 15 gm Q15M PRN PO DECREASED GLUCOSE; Start 01/13/17 at 01:00 Glucose (Glutose) 22.5 gm Q15M PRN PO DECREASED GLUCOSE; Start 01/13/17 at 01: 00 Dextrose (D50w Syringe) 25 ml Q15M PRN IV DECREASED GLUCOSE; Start 01/13/17 at 01:00 Dextrose (D50w Syringe) 50 ml Q15M PRN IV DECREASED GLUCOSE; Start 01/13/17 at 01:00 Glucagon (Glucagen) 1 mg Q15M PRN IM DECREASED GLUCOSE; Start 01/13/17 at 01:00 Glucose (Glutose) 15 gm Q15M PRN BUCCAL DECREASED GLUCOSE; Start 01/13/17 at 01 :00 PAMELLA VARELA MD Jan 13, 2017 06:56
[2017-01-13] MEDS: INSULIN ASPART [NOVOLOG] 3 ML PEN SC SCH ×2 (07:45→12:00)
[2017-01-13 07:51] LABS: CK-MB 0.91 ng/ml (0.0-2.4); TROPONIN-I 0.106 ng/ml (0.00-0.12)
[2017-01-13] MEDS ORDERED: morphine (ER) 30 MG TAB PO SCH (09:00)
[2017-01-13] MEDS ORDERED: METOPROLOL 25 MG TAB PO SCH (09:00)
[2017-01-13] MEDS ORDERED: ASPIRIN 81 MG TAB PO SCH (09:00)
[2017-01-13] MEDS ORDERED: HYDROCODONE/APAP (10/325) TAB GTB PRN (10:30)
[2017-01-13] MEDS ORDERED: OXYCODONE/ACETAMINOPHEN (10/325) TAB PO PRN (10:30)
[2017-01-13] MEDS ORDERED: morphine 4 MG/ML VIAL IV PRN ×2 (11:00→12:00)
[2017-01-13] MEDS ORDERED: DIPHENHYDRAMINE 50 MG INJ IV PRN (13:50)
[2017-01-13] MEDS ORDERED: LORAZEPAM 2 MG INJ IV PRN (14:00)
[2017-01-13] MEDS ORDERED: LORAZEPAM 2 MG INJ IM PRN (14:00)
--- NOTE | 2017-01-13 15:37 | PDOCDIS ---
Discharge Instructions CONDITION Patient Condition: Good HOME CARE INSTRUCTIONS: Special Diet: DIABETIC DIET ACTIVITY: Activity Restrictions: No Restrictions FOLLOW UP/APPOINTMENTS Follow-up Plan F/U WITH YOUR PCP IN 1-2 WEEKS CHIKI MENDOZA Jan 13, 2017 15:37
--- NOTE | 2017-01-14 14:39 | DS ---
Date/Time of Note Date/Time of Note DATE: 01/14/17 TIME: 14:34 Discharge Summary Admission/Discharge Info Admit Date/Time Jan 12, 2017 at 21:28 Discharge Date/Time Jan 13, 2017 at 18:12 Discharge Diagnosis 1. Chest pain with SVT in a patient with fibromyalgia with chronic pain-SVT resolved s/p vagal maneuver pain is muscular and secondary to fibromyalgia ACS ruled out with negative troponin 2. History of cervical cancer-no acute issues 3. CKD-stable 4. Depression Continue home meds Patient Condition: Good Hx of Present Illness . Hospital Course Patient is a 61-year-old female with history of cervical cancer status post hysterectomy and radiation in 1994, chronic pain syndrome, CKD, fibromyalgia, major depressive disorder, diabetes mellitus, chronic left lower extremity swelling secondary to lymphedema and allergic rhinitis who presented to the emergency department complaining of chest pain. When she presented to the ER, she was found to have SVT with a heart rate of almost 250. She converted to sinus and rate controlled with a vagal maneuver. Patient chest pain improved, ACS ruled out with negative troponins. On day of discharge pain in the chest was reproducible with palpation and felt to be secondary to her fibro-myalgia. Patient was told to follow-up with her PCP and chronic care nurse. On the day of discharge patient's vitals, labs and physical exam stable, she had no acute complaints and questions are answered. Home Meds Active Scripts Ibuprofen* (Motrin*) 800 Mg Tab, 800 MG PO Q8 Y for PAIN, #20 TAB Prov:YAZMIN BROCK MD 12/23/16 Sulfamethoxazole/Trimethoprim* (Bactrim Ds* Tablet) 1 Each Tablet, 1 TAB PO BID , #20 TAB Prov:YAZMIN BROCK MD 12/23/16 Ibuprofen* (Motrin*) 600 Mg Tab, 600 MG PO Q6, #30 TAB Prov:PAMELLA STONE PA-C 08/25/16 Azithromycin* (Zithromax*) 250 Mg Tablet, 250 MG PO .BERANNA DIRECTED, #6 TAB TAKE 500 MG (2 TABS) THE FIRST DAY THEN 250 MG (1 TAB) DAYS 2-5 Prov:PAMELLA STONE PA-C 08/25/16 Magnesium Citrate* (Magnesium Citrate*) 296 Ml Solution, 296 ML PO ONCE, #1 BOTTLE Prov:SHASHA FISH DO 06/28/16 Polyethylene Glycol* (Miralax*) 17 Gm Powd.pack, 17 GM PO BID, #60 PACKET Prov:SHASHA FISH DO 06/28/16 Benzonatate* (Tessalon Perle*) 100 Mg Capsule, 100 MG PO Q8H Y for COUGH, #14 CAP Prov:SHASHA FISH DO 06/28/16 Levofloxacin* (Levaquin*) 500 Mg Tablet, 500 MG PO DAILY for 7 Days, TAB Prov:SHASHA FISH DO 06/28/16 Naproxen* (Naproxen*) 500 Mg Tablet, 500 MG PO BID Y for PAIN, #6 TAB Prov:SHASHA FISH DO 06/28/16 Hydrocodone/Acetaminophen ([place] 5-325 Tablet) 1 Each Tablet, 1 EACH PO Q6, #14 TAB Prov:SHASHA FISH DO 06/28/16 Ranitidine Hcl* (Zantac*) 150 Mg Tablet, 150 MG PO BID Y for EPIGASTRIC PAIN, # 30 TAB Prov:LEEANNE HARVEY DO 06/20/16 Reported Medications Oxycodone HCl/Acetaminophen (Percocet 10-325 mg Tablet) 1 Each Tablet, 2 EACH PO BID, TAB 06/20/16 Lorazepam* (Lorazepam*) 1 Mg Tablet, 1 MG PO HS, #30 TAB 06/20/16 Insulin Glargine* (Lantus*) 100 Unit/Ml Soln, 40 UNIT SC QHS, #1 VIAL 06/20/16 Bupropion Hcl* (Wellbutrin XL*) 300 Mg Tab.sr.24h, 300 MG PO TID, TAB.SA 06/20/16 Sitagliptin* (Januvia*) 25 Mg Tablet, 25 MG PO DAILY, #30 TAB 09/15/15 Pantoprazole* (Protonix*) 40 Mg Tablet.dr, 40 MG PO DAILY, TAB 09/15/15 Follow-up Plan F/U WITH YOUR PCP IN 1-2 WEEKS Primary Care Provider Kyler Angelo MD Time spent on discharge: > 30 minutes CHIKI MENDOZA Jan 14, 2017 14:39
== END 2017-01-13 18:12 | disposition home or self-care (01) | DRG 310 ==
LOC: E/R 18:55 → MS4 21:28
PROVIDERS: ADMIT Internal Medicine; ATTEND Internal Medicine
DX: I47.1 Supraventricular tachycardia (principal); I10 Essential (primary) hypertension; E11.9 Type 2 diabetes mellitus without complications; K21.9 Gastro-esophageal reflux disease without esophagitis; Z85.42 Personal history of malignant neoplasm of other parts of uterus; R07.9 Chest pain, unspecified
CPT/HCPCS: 36415; 71010; 80053; 81003; 82550; 82553; 82962; 84439; 84443; 84484; 85025; 93005; 96361; 96374; 96375; 96376; J1200; J1815; J2060; J2270; J2405; J7030

== ENCOUNTER 2017-03-28 17:39 | Emergency (ER) | payer BC ==
[~2017-03-28] VITALS: Wt 82.8 kg
[2017-03-28] MEDS ORDERED: SODIUM CHLORIDE 0.9% 1L BAG IV* STA (20:33)
[2017-03-28] MEDS ORDERED: HYDROmorphONE 1 MG/ML SYG IV STA (20:33)
[2017-03-28] MEDS ORDERED: ONDANSETRON 4 MG INJ IV STA (20:33)
[2017-03-28 21:08] LABS: BASOPHILS % 0.5 % (0.0-2.0); EOSINOPHILS # 0.1 10^3/ul (0.0-0.5); EOSINOPHILS % 1.3 % (0.0-7.0); HEMOGLOBIN 9.7 g/dl (12.0-16.0); LYMPHOCYTES # 1.7 10^3/ul (0.8-2.9); LYMPHOCYTES % 21.1 % (15.0-51.0); MEAN CORPUSCULAR HEMOGLOBIN 25.7 pg (29.0-33.0); MEAN CORPUSCULAR HGB CONC 31.3 g/dl (32.0-37.0); MEAN PLATELET VOLUME 10.6 fl (7.4-10.4); MONOCYTE # 0.5 10^3/ul (0.3-0.9); MONOCYTES % 6.1 % (0.0-11.0); NEUTROPHIL # 5.8 10^3/ul (1.6-7.5); NEUTROPHILS % 70.6 % (39.0-77.0); PLATELET COUNT 268 10^3/UL (140-415); RED BLOOD COUNT 3.78 10^6/ul (4.20-5.40); RED CELL DISTRIBUTION WIDTH 15.8 % (11.5-14.5); WHITE BLOOD COUNT 8.2 10^3/ul (4.8-10.8)
[2017-03-28 21:24] LABS: INR 0.93; PROTIME 12.6 Sec (11.9-14.9)
[2017-03-28 21:25] LABS: PARTIAL THROMBOPLASTIN TIME 31.2 Sec (25.0-35.0)
[2017-03-28 21:27] LABS: ALANINE AMINOTRANSFERASE 23 IU/L (13-69); ALBUMIN 3.6 g/dl (3.3-4.9); ALBUMIN/GLOBULIN RATIO 0.92; ALKALINE PHOSPHATASE 75 IU/L (42-121); ANION GAP 16 (8-16); ASPARTATE AMINO TRANSFERASE 17 IU/L (15-46); BILIRUBIN,INDIRECT 0.1 mg/dl (0-1.1); BILIRUBIN,TOTAL 0.1 mg/dl (0.2-1.3); BLOOD UREA NITROGEN 13 mg/dl (7-20); CALCIUM 9.1 mg/dl (8.4-10.2); CARBON DIOXIDE 26 mmol/L (21-31); CHLORIDE 102 mmol/L (97-110); CREATININE 1.59 mg/dl (0.44-1.00); GLUCOSE 167 mg/dl (70-220); POTASSIUM 3.9 mmol/L (3.5-5.1); SODIUM 140 mmol/L (135-144); TOTAL PROTEIN 7.5 g/dl (6.1-8.1)
[2017-03-28 21:29] LABS: ADD UMIC YES; UR ASCORBIC ACID NEGATIVE (NEGATIVE); UR BILIRUBIN (Dip) NEGATIVE (NEGATIVE); UR BLOOD (Dip) 3+ mg/dL (NEGATIVE); UR CLARITY CLOUDY (CLEAR); UR COLOR RED (YELLOW); UR GLUCOSE (Dip) NEGATIVE (NEGATIVE); UR KETONES (Dip) TRACE mg/dL (NEGATIVE); UR LEUKOCYTE ESTERASE (Dip) 3+ Leu/ul (NEGATIVE); UR NITRITE (Dip) NEGATIVE (NEGATIVE); UR RBC > 182 /HPF (0-5); UR TOTAL PROTEIN (Dip) 2+ mg/dl (NEGATIVE); UR UROBILINOGEN (Dip) NEGATIVE (NEGATIVE)
[2017-03-28 21:38] LABS: TROPONIN-I < 0.012 ng/ml (0.00-0.12)
[2017-03-28] MEDS ORDERED: KETOROLAC 30 MG INJ IV STA (21:56)
[2017-03-28] MEDS ORDERED: PHENAZOPYRIDINE 100 MG TAB PO ONE (22:00)
[2017-03-28] MEDS ORDERED: CEFTRIAXONE 1 GM/50 ML (PMX) 50 ML IVPB ONE (22:00)
--- NOTE | 2017-03-28 22:00 | RADRPT ---
PROCEDURE: XR Chest. CLINICAL INDICATION: Sepsis. TECHNIQUE: Single frontal chest x-ray. COMPARISON: 01/12/2017 FINDINGS: The cardiomediastinal silhouette is unremarkable. There is no congestive heart failure.. No focal i nfiltrate is seen. There is no pleural effusion. There is no pneumothorax. The osseous structures are unremarkable. IMPRESSION: 1. No active disease. RPTAT: [facility]VK .Vin Frederick MD, MD Date Time Electronically viewed and signed by .Vin Frederick MD, on 03/28/2017 21:59 .K/
[2017-03-28 23:46] VITALS: TEMP 98
[2017-03-29 00:32] VITALS: BP 90/54; PULSE 102; RESP 18
[2017-03-29] MEDS ORDERED: SODI126M NASAL (01:07)
[2017-03-29] MEDS ORDERED: ELEC100080 PO (01:07)
[2017-03-29] MEDS ORDERED: IBUP-1542 PO (01:12)
[2017-03-29] MEDS ORDERED: LEVO750T25 PO (01:12)
--- NOTE | 2017-03-29 01:53 | ERD ---
ER Documentation Chief Complaint Chief Complaint PAIN WITH URINATION, ONSET 3 DAYS, NO N/V HPI 31-year-old female complaining of suprapubic pain 3 days. Patient states that she has indwelling Weber catheter for the last 2 month, after the pelvic floor surgery January 30, 2017. Patient has a follow-up appointment with her surgeon on 04/02/2017, at which time the surgeon will evaluate the removal of the Weber catheter. Her surgeon is Dr. Dannie Morales from [facility]. Patient stated that she noticed large amount of blood draining from the Weber this morning. Patient reports tactile fever yesterday, and took ibuprofen at home. Last dose of ibuprofen was taken yesterday. She also complaining of bilateral flank pain. Denies nausea, vomiting, or diarrhea. Denies syncope. Denies weakness or dizziness. ROS All systems reviewed and are negative except as per history of present illness. Medications Home Meds Active Scripts Ibuprofen* (Motrin*) 600 Mg Tab, 600 MG PO Q6H Y for PAIN AND OR ELEVATED TEMP, #30 TAB Prov:USHA TRINIDAD. ORTHOPEDIC BRACE MAKER 03/29/17 Levofloxacin* (Levaquin*) 750 Mg Tablet, 750 MG PO DAILY for 10 Days, TAB Prov:USHA TRINIDAD. ORTHOPEDIC BRACE MAKER 03/29/17 Ibuprofen* (Motrin*) 800 Mg Tab, 800 MG PO Q8 Y for PAIN, #20 TAB Prov:YAZMIN BROCK MD 12/23/16 Sulfamethoxazole/Trimethoprim* (Bactrim Ds* Tablet) 1 Each Tablet, 1 TAB PO BID , #20 TAB Prov:YAZMIN BROCK MD 12/23/16 Ibuprofen* (Motrin*) 600 Mg Tab, 600 MG PO Q6, #30 TAB Prov:PAMELLA STONE PA-C 08/25/16 Azithromycin* (Zithromax*) 250 Mg Tablet, 250 MG PO .AminaPACK DIRECTED, #6 TAB TAKE 500 MG (2 TABS) THE FIRST DAY THEN 250 MG (1 TAB) DAYS 2-5 Prov:PAMELLA STONE PA-C 08/25/16 Magnesium Citrate* (Magnesium Citrate*) 296 Ml Solution, 296 ML PO ONCE, #1 BOTTLE Prov:SHASHA FISH DO 06/28/16 Polyethylene Glycol* (Miralax*) 17 Gm Powd.pack, 17 GM PO BID, #60 PACKET Prov:SHASHA FISH DO 06/28/16 Benzonatate* (Tessalon Perle*) 100 Mg Capsule, 100 MG PO Q8H Y for COUGH, #14 CAP Prov:SHASHA FISH DO 06/28/16 Levofloxacin* (Levaquin*) 500 Mg Tablet, 500 MG PO DAILY for 7 Days, TAB Prov:SHASHA FISH DO 06/28/16 Naproxen* (Naproxen*) 500 Mg Tablet, 500 MG PO BID Y for PAIN, #6 TAB Prov:SHASHA FISH DO 06/28/16 Hydrocodone/Acetaminophen ([place] 5-325 Tablet) 1 Each Tablet, 1 EACH PO Q6, #14 TAB Prov:SHASHA FISH DO 06/28/16 Ranitidine Hcl* (Zantac*) 150 Mg Tablet, 150 MG PO BID Y for EPIGASTRIC PAIN, # 30 TAB Prov:LEEANNE HARVEY DO 06/20/16 Reported Medications Oxycodone HCl/Acetaminophen (Percocet 10-325 mg Tablet) 1 Each Tablet, 2 EACH PO BID, TAB 06/20/16 Lorazepam* (Lorazepam*) 1 Mg Tablet, 1 MG PO HS, #30 TAB 06/20/16 Insulin Glargine* (Lantus*) 100 Unit/Ml Soln, 40 UNIT SC QHS, #1 VIAL 06/20/16 Bupropion Hcl* (Wellbutrin XL*) 300 Mg Tab.sr.24h, 300 MG PO TID, TAB.SA 06/20/16 Sitagliptin* (Januvia*) 25 Mg Tablet, 25 MG PO DAILY, #30 TAB 09/15/15 Pantoprazole* (Protonix*) 40 Mg Tablet.dr, 40 MG PO DAILY, TAB 09/15/15 Allergies Allergies: Coded Allergies: No Known Allergy (Unverified , 06/27/16) PMhx/Soc History of Surgery: Yes Anesthesia Reaction: No Hx Neurological Disorder: No Hx Respiratory Disorders: Yes (Sleep Apnea) Hx Cardiac Disorders: Yes (HTN) Hx Psychiatric Problems: Yes (Anxiety and Depression) Hx Miscellaneous Medical Probl: Yes (Resolved Cervical Ca, DM, Lymphedema ) Hx Alcohol Use: No Hx Substance Use: No Hx Tobacco Use: No Smoking Status: Never smoker Physical Exam Vitals Vital Signs Date Time Temp Pulse Resp B/P Pulse Ox O2 Delivery O2 Flow Rate FiO2 03/29/17 00:32 102 18 90/54 93 Room Air 03/28/17 23:46 98.0 108 26 115/82 95 Room Air 03/28/17 17:40 98.9 120 18 130/72 98 Physical Exam General: Well-developed, well-nourished, conscious and coherent, in no distress Skin: Warm and dry without rash, good texture and turgor Head: Normocephalic without evidence of trauma Chest: Normal AP diameter. Good expansion without retractions. Nontender. Lungs are clear to auscultate bilaterally with good tidal volume Heart: Regular rate and rhythm. No murmur, rub, or gallops heard Abdomen: Soft and nontender without masses, guarding, or rebound. Bowel sounds are active. No hepatosplenomegaly Back: Without spinal tenderness. Right CVA tenderness Pelvis: Prepubic tenderness Extremities: Full range of motion. Good strength bilaterally. No clubbing, cyanosis, or edema. Peripheral pulses are intact. Sensation intact Neuro: Alert and oriented 4, GCS 15. Cranial nerves grossly intact. Motor and sensory exams nonfocal. Moves all extremities. Speech clear. Gait normal Result Diagram: 03/28/17204403/28/172044 Results 24 hrs Laboratory Tests Test 03/28/17 20:45 03/28/17 21:10 03/28/17 23:47 White Blood Count 8.210^3/ul Red Blood Count 3.7810^6/ul Hemoglobin 9.7g/dl Hematocrit 31.0% Mean Corpuscular Volume 82.0fl Mean Corpuscular Hemoglobin 25.7pg Mean Corpuscular Hemoglobin Concent 31.3g/dl Red Cell Distribution Width 15.8% Platelet Count 07639^3/UL Mean Platelet Volume 10.6fl Neutrophils % 70.6% Lymphocytes % 21.1% Monocytes % 6.1% Eosinophils % 1.3% Basophils % 0.5% Nucleated Red Blood Cells % 0.0/100WBC Neutrophils # 5.810^3/ul Lymphocytes # 1.710^3/ul Monocytes # 0.510^3/ul Eosinophils # 0.110^3/ul Basophils # 0.010^3/ul Nucleated Red Blood Cells # 0.010^3/ul Prothrombin Time 12.6Sec Prothrombin Time Ratio 1.0 INR International Normalized Ratio 0.93 Activated Partial Thromboplast Time 31.2Sec Sodium Level 140mmol/L Potassium Level 3.9mmol/L Chloride Level 102mmol/L Carbon Dioxide Level 26mmol/L Anion Gap 16 Blood Urea Nitrogen 13mg/dl Creatinine 1.59mg/dl Glucose Level 167mg/dl Lactic Acid Level 2.7mmol/L 1.6mmol/L Calcium Level 9.1mg/dl Total Bilirubin 0.1mg/dl Direct Bilirubin 0.00mg/dl Indirect Bilirubin 0.1mg/dl Aspartate Amino Transf (AST/SGOT) 17IU/L Alanine Aminotransferase (ALT/SGPT) 23IU/L Alkaline Phosphatase 75IU/L Troponin I < 0.012ng/ml Total Protein 7.5g/dl Albumin 3.6g/dl Globulin 3.90g/dl Albumin/Globulin Ratio 0.92 Urine Color RED Urine Clarity CLOUDY Urine pH 6.0 Urine Specific [place] 1.010 Urine Ketones TRACEmg/dL Urine Nitrite NEGATIVEmg/dL Urine Bilirubin NEGATIVEmg/dL Urine Urobilinogen NEGATIVEmg/dL Urine Leukocyte Esterase 3+Elizabeth/ul Urine Microscopic RBC > 182/HPF Urine Microscopic WBC 69/HPF Urine Hemoglobin 3+mg/dL Urine Glucose NEGATIVEmg/dL Urine Total Protein 2+mg/dl Current Medications Medications (Trade) Dose Ordered Sig/Nuno Route PRN Reason Start Time Stop Time Status Last Admin Dose Admin Sodium Chloride (NS) 2,570 ml BOLUS OVER 2 HOURS STAT IV* 03/28/17 20:33 03/28/17 20:38 DC 03/28/17 20:51 Hydromorphone HCl (Dilaudid) 1 mg ONCE STAT IV 03/28/17 20:33 03/28/17 20:38 DC 03/28/17 20:50 Ondansetron HCl 4 mg 4 mg ONCE STAT IV 03/28/17 20:33 03/28/17 20:38 DC 03/28/17 20:50 Ceftriaxone Sodium (Rocephin) 50 ml @ 100 mls/hr ONCE ONCE IVPB 03/28/17 22:00 03/28/17 22:29 DC 03/28/17 22:03 Ketorolac Tromethamine (Toradol) 30 mg ONCE STAT IV 03/28/17 21:56 03/28/17 21:57 DC 03/28/17 22:03 Phenazopyridine HCl (Pyridium) 200 mg ONCE ONCE PO 03/28/17 22:00 03/28/17 22:01 DC 03/28/17 22:06 PROCEDURE: XR Chest. CLINICAL INDICATION: Sepsis. TECHNIQUE: Single frontal chest x-ray. COMPARISON: 01/12/2017 FINDINGS: The cardiomediastinal silhouette is unremarkable. There is no congestive heart failure.. No focal infiltrate is seen. There is no pleural effusion. There is no pneumothorax. The osseous structures are unremarkable. IMPRESSION: 1. No active disease. RPTAT: HMVK .Vin Frederick MD, Date Time Electronically viewed and signed by .Vin Frederick MD, MD on 03/28/2017 21:59 .K/ CC: USHA TRINIDAD ORTHOPEDIC BRACE MAKER Procedures/MDM Well-appearing 61-year-old female complaining of suprapubic pain and hematuria. Patient has a indwelling Weber catheter for 2 month. Her Weber catheter is replaced in the ED. UA: 3+ leukocyte, 69 WBC. Patient initially presents with pulse 120 bpm, patient reports tactile fever at home. Since I suspect patient has catheter induced urinary tract infection, I am concerned for possible sepsis. Sepsis protocol followed. 30 ml/kg NS bolus Completed Initial Lactate: 2.4 Repeat Lactate 1.6 Antibiotics: Rocephin IV 1 g EKG: Sinus tachycardia with heart rate 116 bpm, left axis. No ST segment elevation or depression. No ectopic beats. No QT prolongation. No other EKG abnormalities. EKG read by Dr. Mayer. She complaining of severe pain, Dilaudid 1 mg IV is given to the patient in the ED for pain. Patient states that "only thing that works for my pain is morphine ". She request more morphine shortly after Dilaudid administration. Continued to request pain medication after I gave her additional Toradol IV. At this time , patient stated that she has history of chronic pain, and she would like to have Percocet prescription to take for home. I informed patient that I will not defer any more narcotic pain medications both here in the ED, and for home. Also informed patient that I will refer her to a painter and grader cork for follow-up. Patient does not have elevated WBC. Her blood pressure is in the normal range. Except for elevated creatinine and initial lactate, all her labs are unremarkable. I do not think the patient has sepsis. I discussed the patient with Dr. Mayer, who feels that the elevated lactate may be due to dehydration. Repeat lactate after IV fluids is in the normal range. Patient appears well, stable for discharge and outpatient management. Medical decision making shared with patient and family. Education provided to patient and family. Patient and family expressed understanding of the plan. Medications on discharge: Levaquin, ibuprofen. Follow-up: Primary care provider in 2-3 days or return to ED if worse. Referral to Dr. Newman, pain management given to the patient. The case was reviewed and discussed with Dr. Mayer, who agrees with the plan of care. Disclaimer: Inadvertent spelling and grammatical errors are likely due to EHR/ dictation software use and do not reflect on the overall quality of patient care. Also, please note that the electronic time recorded on this note does not necessarily reflect the actual time of the patient encounter. Departure Diagnosis: Primary Impression: Urinary tract infection Urinary tract infection type: catheter-associated UTI Indwelling urinary catheter type: indwelling urethral catheter Encounter type: initial encounter Qualified Code: T83.511A - Urinary tract infection associated with indwelling urethral catheter, initial encounter Condition: Stable Patient Instructions: Catheter-Associated Urinary Tract Infections Referrals: HUSEYIN NEWMAN Additional Instructions: FOLLOW UP WITH YOUR PRIMARY CARE PHYSICIAN TOMORROW.Return to this facility if you are not improving as expected. USHA TRINIDAD NP Mar 29, 2017 01:48
== END 2017-03-29 01:30 | disposition home or self-care (01) ==
LOC: FTE 17:39
DX: T83.511A Infection and inflammatory reaction due to indwelling urethral catheter, initial encounter (principal); I10 Essential (primary) hypertension; E11.9 Type 2 diabetes mellitus without complications; R10.30 Lower abdominal pain, unspecified; Y73.8 Miscellaneous gastroenterology and urology devices associated with adverse incidents, not elsewhere classified; Z79.4 Long term (current) use of insulin; Z79.84 Long term (current) use of oral hypoglycemic drugs
CPT/HCPCS: 36415; 71010; 80053; 81001; 83605; 84484; 85025; 85610; 85730; 87040; 87086; 93005; 96374; 96375; 99285; J0696; J1170; J1885; J2405; J7030; Z7610

== ENCOUNTER 2017-03-30 04:19 | Emergency (ER) | payer BC ==
[~2017-03-30] VITALS: Ht 162.6 cm; Wt 83.5 kg
[~2017-03-30 04:19] MED LIST changes: +ELEC100080 PO; +LEVO750T25 PO; +SODI126M NASAL
[2017-03-30 04:24] VITALS: Ht 162.6 cm; Wt 83.5 kg
[2017-03-30] MEDS ORDERED: morphine 4 MG/ML VIAL IV STA (04:49)
[2017-03-30] MEDS ORDERED: ONDANSETRON 4 MG INJ IV STA (04:49)
[2017-03-30 05:04] VITALS: TEMP 98.3
[2017-03-30 05:27] LABS: URINE BLOOD (Dip) POC 2+ (NEGATIVE)
[2017-03-30 05:32] LABS: BASOPHIL # 0.1 10^3/ul (0.0-0.1); BASOPHILS % 0.5 % (0.0-2.0); EOSINOPHILS # 0.2 10^3/ul (0.0-0.5); EOSINOPHILS % 1.3 % (0.0-7.0); HEMOGLOBIN 10.3 g/dl (12.0-16.0); LYMPHOCYTES # 1.9 10^3/ul (0.8-2.9); LYMPHOCYTES % 15.3 % (15.0-51.0); MEAN CORPUSCULAR HEMOGLOBIN 25.3 pg (29.0-33.0); MEAN CORPUSCULAR HGB CONC 31.2 g/dl (32.0-37.0); MEAN CORPUSCULAR VOLUME 81.1 fl (82.0-101.0); MEAN PLATELET VOLUME 10.7 fl (7.4-10.4); MONOCYTE # 0.7 10^3/ul (0.3-0.9); MONOCYTES % 5.8 % (0.0-11.0); NEUTROPHIL # 9.2 10^3/ul (1.6-7.5); NEUTROPHILS % 76.4 % (39.0-77.0); PLATELET COUNT 290 10^3/UL (140-415); RED BLOOD COUNT 4.07 10^6/ul (4.20-5.40); WHITE BLOOD COUNT 12.1 10^3/ul (4.8-10.8)
[2017-03-30 05:55] LABS: ALBUMIN 3.9 g/dl (3.3-4.9); ALBUMIN/GLOBULIN RATIO 1.05; BILIRUBIN,INDIRECT 0.1 mg/dl (0-1.1); BILIRUBIN,TOTAL 0.1 mg/dl (0.2-1.3); CALCIUM 9.2 mg/dl (8.4-10.2); CREATININE 1.55 mg/dl (0.44-1.00); POTASSIUM 3.7 mmol/L (3.5-5.1); TOTAL PROTEIN 7.6 g/dl (6.1-8.1)
--- NOTE | 2017-03-30 06:11 | ERD ---
ER Documentation Chief Complaint Chief Complaint abd pain x 1 day HPI The patient is a 61-year-old female, presenting to the ER because of abdominal pain for 1 day, was seen in the ER yesterday and diagnosed with acute cystitis, discharged with Levaquin. She denies fever, chills, neck pain, chest pain, dyspnea. She has history of chronic pain ROS All systems reviewed and are negative except as per history of present illness. Medications Home Meds Active Scripts Ibuprofen* (Motrin*) 600 Mg Tab, 600 MG PO Q6H Y for PAIN AND OR ELEVATED TEMP, #30 TAB Prov:USHA TRINIDAD CHISEL WORKER 03/29/17 Levofloxacin* (Levaquin*) 750 Mg Tablet, 750 MG PO DAILY for 10 Days, TAB Prov:USHA TRINIDAD CHISEL WORKER 03/29/17 Ibuprofen* (Motrin*) 800 Mg Tab, 800 MG PO Q8 Y for PAIN, #20 TAB Prov:YAZMIN BROCK MD 12/23/16 Sulfamethoxazole/Trimethoprim* (Bactrim Ds* Tablet) 1 Each Tablet, 1 TAB PO BID , #20 TAB Prov:YAZMIN BROCK MD 12/23/16 Ibuprofen* (Motrin*) 600 Mg Tab, 600 MG PO Q6, #30 TAB Prov:PAMELLA STONE PA-C 08/25/16 Azithromycin* (Zithromax*) 250 Mg Tablet, 250 MG PO .ZPACK DIRECTED, #6 TAB TAKE 500 MG (2 TABS) THE FIRST DAY THEN 250 MG (1 TAB) DAYS 2-5 Prov:PAMELLA STONE PA-C 08/25/16 Magnesium Citrate* (Magnesium Citrate*) 296 Ml Solution, 296 ML PO ONCE, #1 BOTTLE Prov:SHASHA FISH DO 06/28/16 Polyethylene Glycol* (Miralax*) 17 Gm Powd.pack, 17 GM PO BID, #60 PACKET Prov:SHASHA FISH DO 06/28/16 Benzonatate* (Tessalon Perle*) 100 Mg Capsule, 100 MG PO Q8H Y for COUGH, #14 CAP Prov:SHASHA FISH DO 06/28/16 Levofloxacin* (Levaquin*) 500 Mg Tablet, 500 MG PO DAILY for 7 Days, TAB Prov:SHASHA FISH DO 06/28/16 Naproxen* (Naproxen*) 500 Mg Tablet, 500 MG PO BID Y for PAIN, #6 TAB Prov:SHASHA FISH DO 06/28/16 Hydrocodone/Acetaminophen ([place] 5-325 Tablet) 1 Each Tablet, 1 EACH PO Q6, #14 TAB Prov:SHASHA FISH DO 06/28/16 Ranitidine Hcl* (Zantac*) 150 Mg Tablet, 150 MG PO BID Y for EPIGASTRIC PAIN, # 30 TAB Prov:LEEANNE HARVEY DO 06/20/16 Reported Medications Oxycodone HCl/Acetaminophen (Percocet 10-325 mg Tablet) 1 Each Tablet, 2 EACH PO BID, TAB 06/20/16 Lorazepam* (Lorazepam*) 1 Mg Tablet, 1 MG PO HS, #30 TAB 06/20/16 Insulin Glargine* (Lantus*) 100 Unit/Ml Soln, 40 UNIT SC QHS, #1 VIAL 06/20/16 Bupropion Hcl* (Wellbutrin XL*) 300 Mg Tab.sr.24h, 300 MG PO TID, TAB.SA 06/20/16 Sitagliptin* (Januvia*) 25 Mg Tablet, 25 MG PO DAILY, #30 TAB 09/15/15 Pantoprazole* (Protonix*) 40 Mg Tablet.dr, 40 MG PO DAILY, TAB 09/15/15 Allergies Allergies: Coded Allergies: No Known Allergy (Unverified , 06/27/16) PMhx/Soc History of Surgery: Yes (HYSTERECTOMY, APPY) Anesthesia Reaction: No Hx Neurological Disorder: No Hx Respiratory Disorders: Yes (Sleep Apnea) Hx Cardiac Disorders: Yes (HTN) Hx Psychiatric Problems: Yes (Anxiety and Depression) Hx Miscellaneous Medical Probl: Yes (Resolved Cervical Ca, DM, Lymphedema ) Hx Alcohol Use: No Hx Substance Use: No Hx Tobacco Use: No Smoking Status: Never smoker Physical Exam Vitals Vital Signs Date Time Temp Pulse Resp B/P Pulse Ox O2 Delivery O2 Flow Rate FiO2 03/30/17 05:04 98.3 106 20 135/86 95 Room Air 03/30/17 04:24 98.3 130 20 139/85 97 Physical Exam Const: No acute distress. Head: Atraumatic. Eyes: Normal Conjunctiva. ENT: Normal External Ears, Nose and Mouth. Neck: Full range of motion. No meningismus. Resp: Clear to auscultation bilaterally. Cardio: Regular rate and rhythm. Abd: Soft, non distended, normal bowel sounds, non tender when she was distracted. Skin: No petechiae or rashes. Back: No midline or flank tenderness. Ext: No cyanosis, or edema. Neur: Awake and alert. No focal deficit Psych: Anxious. Result Diagram: 03/30/17 0500 03/30/17 0500 Results 24 hrs Laboratory Tests Test 03/30/17 05:00 03/30/17 05:26 White Blood Count 12.110^3/ul Red Blood Count 4.0710^6/ul Hemoglobin 10.3g/dl Hematocrit 33.0% Mean Corpuscular Volume 81.1fl Mean Corpuscular Hemoglobin 25.3pg Mean Corpuscular Hemoglobin Concent 31.2g/dl Red Cell Distribution Width 16.0% Platelet Count 27658^3/UL Mean Platelet Volume 10.7fl Neutrophils % 76.4% Lymphocytes % 15.3% Monocytes % 5.8% Eosinophils % 1.3% Basophils % 0.5% Nucleated Red Blood Cells % 0.0/100WBC Neutrophils # 9.210^3/ul Lymphocytes # 1.910^3/ul Monocytes # 0.710^3/ul Eosinophils # 0.210^3/ul Basophils # 0.110^3/ul Nucleated Red Blood Cells # 0.010^3/ul Sodium Level 140mmol/L Potassium Level 3.7mmol/L Chloride Level 100mmol/L Carbon Dioxide Level 26mmol/L Anion Gap 18 Blood Urea Nitrogen 15mg/dl Creatinine 1.55mg/dl Glucose Level 164mg/dl Calcium Level 9.2mg/dl Total Bilirubin 0.1mg/dl Direct Bilirubin 0.00mg/dl Indirect Bilirubin 0.1mg/dl Aspartate Amino Transf (AST/SGOT) 19IU/L Alanine Aminotransferase (ALT/SGPT) 19IU/L Alkaline Phosphatase 86IU/L Total Protein 7.6g/dl Albumin 3.9g/dl Globulin 3.70g/dl Albumin/Globulin Ratio 1.05 Lipase 141U/L Bedside Urine pH (LAB) 5.5 Bedside Urine Protein (LAB) 2+ Bedside Urine Glucose (UA) Negative Bedside Urine Ketones (LAB) Negative Bedside Urine Blood 2+ Bedside Urine Nitrite (LAB) Negative Bedside Urine Leukocyte Esterase (L 1+ Current Medications Medications (Trade) Dose Ordered Sig/Nuno Route PRN Reason Start Time Stop Time Status Last Admin Dose Admin Morphine Sulfate (morphine) 4 mg ONCE STAT IV 03/30/17 04:49 03/30/17 04:50 DC 03/30/17 05:00 Ondansetron HCl (Zofran Inj) 4 mg ONCE STAT IV 03/30/17 04:49 03/30/17 04:50 DC 03/30/17 05:00 Procedures/MDM MEDICAL MAKING DECISION: The patient is a 61-year-old female, presenting with cystitis, chronic pain syndrome. Yesterday urine was obtained from newly inserted Weber. Today urine dipstick is obtained from the Weber, therefore is contaminated. She was treated with morphine 4 mg IV for pain, Zofran 4 mg IV for now sent with good response. she is still requesting more pain medication The differential diagnoses considered include but are not limited to cholelithiasis, cholecystitis, cystitis, pancreatitis, hepatitis, gastritis, peptic ulcer disease, gastric ulcer, appendicitis, diverticulitis, cholangitis, choledocholithiasis, partial small bowel obstruction. Departure Diagnosis: Primary Impression: UTI (urinary tract infection) Additional Impressions: Chronic pain Anemia Condition: Good Patient Instructions: Understanding Urinary Tract Infections (UTIs) Additional Instructions: Call your primary care doctor TOMORROW for referral to an urologist and your chronic pain management physician for an appointment during the next 1-2 days.See the doctor sooner or return here if your condition worsens before your appointment time. MICHELLE BARRAZA MD Mar 30, 2017 06:11
[2017-03-30 06:14] VITALS: BP 135/86; PULSE 114; RESP 18
== END 2017-03-30 10:19 | disposition home or self-care (01) ==
LOC: E/R 04:19
DX: N39.0 Urinary tract infection, site not specified (principal); G89.29 Other chronic pain; D64.9 Anemia, unspecified; I10 Essential (primary) hypertension; E11.9 Type 2 diabetes mellitus without complications; Z79.84 Long term (current) use of oral hypoglycemic drugs; Z79.4 Long term (current) use of insulin
CPT/HCPCS: 36415; 80053; 81003; 83690; 85025; 96374; 96375; 99284; J2270; J2405

== ENCOUNTER 2017-05-09 03:11 | Emergency (ER) | END 2017-05-09 06:27 | disposition home or self-care (01) ==

== ENCOUNTER 2017-06-13 14:26 | Emergency (ER) | END 2017-06-13 21:38 | disposition home or self-care (01) ==

== ENCOUNTER 2017-06-18 17:03 | Inpatient (IN) | END 2017-06-23 18:30 | disposition home health service (06) | DRG 699 ==

== ENCOUNTER 2017-07-16 20:28 | Emergency (ER) | END 2017-07-17 01:42 | disposition home or self-care (01) ==

== ENCOUNTER 2017-07-17 18:59 | Emergency (ER) | END 2017-07-17 20:21 | disposition home or self-care (01) ==

== ENCOUNTER 2017-08-06 12:44 | Inpatient (IN) | END 2017-08-13 16:50 | disposition home health service (06) | DRG 871 ==

== ENCOUNTER 2017-08-13 23:38 | Emergency (ER) | END 2017-08-14 03:28 | disposition home or self-care (01) ==

== ENCOUNTER 2017-08-29 11:45 | Emergency (ER) | END 2017-08-29 16:30 | disposition left against medical advice (07) ==

== ENCOUNTER 2017-09-17 15:20 | Emergency (ER) | END 2017-09-17 21:41 | disposition home or self-care (01) ==

== ENCOUNTER 2017-09-23 15:53 | Inpatient (IN) | END 2017-09-28 16:15 | disposition home or self-care (01) | DRG 690 ==

== ENCOUNTER 2017-10-28 15:29 | Emergency (ER) | END 2017-10-28 17:20 | disposition home or self-care (01) ==

== ENCOUNTER 2017-11-04 08:26 | Inpatient (IN) | END 2017-11-07 16:05 | disposition home or self-care (01) | DRG 872 ==

== ENCOUNTER 2017-11-27 12:23 | Emergency (ER) | END 2017-11-27 14:30 | disposition home or self-care (01) ==

== ENCOUNTER 2017-12-20 18:13 | Emergency (ER) | END 2017-12-20 20:35 | disposition home or self-care (01) ==

== ENCOUNTER 2018-03-04 00:05 | Emergency (ER) | END 2018-03-04 02:50 | disposition home or self-care (01) ==

== ENCOUNTER 2018-03-04 18:01 | Emergency (ER) | END 2018-03-05 02:35 | disposition home or self-care (01) ==

== ENCOUNTER 2018-03-19 16:53 | Emergency (ER) | END 2018-03-19 20:55 | disposition home or self-care (01) ==

== ENCOUNTER 2018-06-26 15:21 | Emergency (ER) | payer BC ==
[~2018-06-26] VITALS: Ht 167.6 cm; Wt 85.5 kg
[~2018-06-26 15:21] MED LIST changes: -AZIT250T94 PO; -BENZ100C70 PO; -BUPR300T48 PO; -ELEC100080 PO; +GABA300C16 PO; -HYDR-906 PO; -IBUP-1542 PO; -IBUP800T25 PO; -LEVO500T72 PO; -LEVO750T25 PO; -MAGN296S40 PO; -NAPR-688 PO; +PARO-2 PO; -POLY17PO6 PO; -RANI150T9 PO; -SODI126M NASAL; -SULF1TAB31 PO; +ZOLP10TA PO
[2018-06-26 15:32] VITALS: Ht 167.6 cm; Wt 85.5 kg
[2018-06-26] MEDS ORDERED: ONDANSETRON (ODT) 4 MG TAB ODT STA (18:00)
[2018-06-26] MEDS ORDERED: HYDROCODONE/APAP (5/325) TAB PO ONE (18:00)
[2018-06-26] MEDS ORDERED: ENOXAPARIN 40 MG/0.4 ML SYG SC ONE (18:30)
[2018-06-26] MEDS ORDERED: oxyCODONE 5 MG TAB PO ONE (19:00)
[2018-06-26] MEDS ORDERED: NITR-58 PO (20:57)
[2018-06-26] MEDS ORDERED: OXYC-279 PO (20:57)
--- NOTE | 2018-06-26 21:01 | ERD ---
ER Documentation Chief Complaint Chief Complaint Complains of leg pain x 2 days ROS All systems reviewed and are negative except as per history of present illness. Medications Home Meds Active Scripts Nitrofurantoin Monohyd Macrocr (Macrobid) 100 Mg Capsr, 100 MG PO BID for uti for 5 Days, #10 CAP Prov:MICHELLE CLINE DO 06/26/18 Oxycodone HCl/Acetaminophen (Percocet 5-325 mg Tablet) 1 Each Tablet, 1 EACH PO Q6H PRN for PAIN, #10 TAB Prov:MICHELLE CLINE DO 06/26/18 Reported Medications Paroxetine Hcl* (Paxil*) 20 Mg Tablet, 20 MG PO DAILY, TAB 06/02/18 Gabapentin* (Gabapentin*) 300 Mg Capsule, 600 MG PO TID, #180 CAP 03/05/18 Sitagliptin* (Januvia*) 25 Mg Tablet, 25 MG PO DAILY, #30 TAB 12/20/17 Zolpidem Tartrate* (Ambien*) 10 Mg Tablet, 10 MG PO QHS PRN for INSOMNIA, TAB 12/20/17 Pantoprazole* (Protonix*) 40 Mg Tablet.dr, 40 MG PO DAILY, TAB 06/16/17 Oxycodone HCl/Acetaminophen (Percocet 10-325 mg Tablet) 1 Each Tablet, 1 EACH PO Q4 PRN for PAIN, TAB 06/16/17 Lorazepam* (Lorazepam*) 1 Mg Tablet, 1 MG PO HS PRN for ANXIETY, #30 TAB 06/16/17 Insulin Glargine* (Lantus*) 100 Unit/Ml Soln, 50 UNIT SC QHS, #1 VIAL 06/16/17 Allergies Allergies: Coded Allergies: No Known Allergy (Unverified , 06/02/18) PMhx/Soc History of Surgery: Yes (Hysterectomy) Anesthesia Reaction: No Hx Neurological Disorder: Yes (depression , anxiety ) Hx Respiratory Disorders: No Hx Cardiac Disorders: Yes (htn) Hx Psychiatric Problems: Yes (depression , anxiety ) Hx Miscellaneous Medical Probl: No (See note) Hx Alcohol Use: No Hx Substance Use: No Hx Tobacco Use: No Physical Exam Vitals Vital Signs Date Temp Pulse Resp B/P (MAP) Pulse Ox O2 O2 Flow FiO2 Time Delivery Rate 06/26/18 99.4 94 20 136/71 96 15:32 (92) Physical Exam Const: No acute distress Head: Atraumatic Eyes: Normal Conjunctiva ENT: Normal External Ears, Nose and Mouth. Neck: Full range of motion. No meningismus. Resp: Clear to auscultation bilaterally Cardio: Regular rate and rhythm, no murmurs Abd: Soft, non tender, non distended. Normal bowel sounds Skin: No petechiae or rashes Back: No midline or flank tenderness Ext: No cyanosis, or edema Neur: Awake and alert Psych: Normal Mood and Affect Result Diagram: 06/26/18195106/26/181951 Results 24 hrs Laboratory Tests Test 06/26/18 19:52 06/26/18 20:49 White Blood Count 9.4 10^3/ul Red Blood Count 4.14 10^6/ul Hemoglobin 11.6 g/dl Hematocrit 35.9 % Mean Corpuscular Volume 86.7 fl Mean Corpuscular Hemoglobin 28.0 pg Mean Corpuscular Hemoglobin Concent 32.3 g/dl Red Cell Distribution Width 13.5 % Platelet Count 228 10^3/UL Mean Platelet Volume 10.8 fl Immature Granulocytes % 0.400 % Neutrophils % 64.6 % Lymphocytes % 25.6 % Monocytes % 6.6 % Eosinophils % 2.1 % Basophils % 0.7 % Nucleated Red Blood Cells % 0.0 /100WBC Immature Granulocytes # 0.040 10^3/ul Neutrophils # 6.1 10^3/ul Lymphocytes # 2.4 10^3/ul Monocytes # 0.6 10^3/ul Eosinophils # 0.2 10^3/ul Basophils # 0.1 10^3/ul Nucleated Red Blood Cells # 0.0 10^3/ul Sodium Level 140 mmol/L Potassium Level 4.4 mmol/L Chloride Level 105 mmol/L Carbon Dioxide Level 26 mmol/L Anion Gap 9 Blood Urea Nitrogen 22 mg/dl Creatinine 1.72 mg/dl Est Glomerular Filtrat Rate mL/min 30 mL/min Glucose Level 128 mg/dl Calcium Level 9.3 mg/dl Total Bilirubin 0.1 mg/dl Direct Bilirubin 0.00 mg/dl Indirect Bilirubin 0.1 mg/dl Aspartate Amino Transf (AST/SGOT) 29 IU/L Alanine Aminotransferase (ALT/SGPT) 9 IU/L Alkaline Phosphatase 79 IU/L Total Protein 7.8 g/dl Albumin 4.0 g/dl Globulin 3.80 g/dl Albumin/Globulin Ratio 1.05 Bedside Urine pH (LAB) 7.0 Bedside Urine Protein (LAB) 1+ Bedside Urine Glucose (UA) Negative Bedside Urine Ketones (LAB) Negative Bedside Urine Blood Trace-intact Bedside Urine Nitrite (LAB) Negative Bedside Urine Leukocyte Esterase (L 1+ Current Medications Medications Dose Sig/Nuno Start Time Status Last (Trade) Ordered Route PRN Stop Time Admin Dose Reason Admin 1 tab ONCE ONCE 06/26/18 DC 06/26/18 Acetaminophen PO 18:00 18:04 / 06/26/18 18:01 Hydrocodone Bitart ([place] (5/325)) Ondansetron 4 mg ONCE STAT 06/26/18 DC 06/26/18 HCl (Zofran ODT 18:00 18:05 Odt) 06/26/18 18:01 Enoxaparin 40 mg ONCE ONCE 06/26/18 DC 06/26/18 Sodium SC 18:30 18:51 (Lovenox) 06/26/18 18:31 Oxycodone 10 mg ONCE ONCE 06/26/18 DC 06/26/18 HCl PO 19:00 19:29 (Roxicodone) 06/26/18 19:01 Departure Diagnosis: Primary Impression: Pain of left leg Condition: Fair Patient Instructions: Lymphedema Referrals: [facility] YOU HAVE RECEIVED A MEDICAL SCREENING EXAM AND THE RESULTS INDICATE THAT YOU DO NOT HAVE A CONDITION THAT REQUIRES URGENT TREATMENT IN THE EMERGENCY DEPARTMENT. FURTHER EVALUATION AND TREATMENT OF YOUR CONDITION CAN WAIT UNTIL YOU ARE SEEN IN YOUR DOCTORS OFFICE WITHIN THE NEXT 1-2 DAYS. IT IS YOUR RESPONSIBILITY TO MAKE AN APPOINTMENT FOR FOLOW-UP CARE. IF YOU HAVE A PRIMARY DOCTOR --you should call your primary doctor and schedule an appointment IF YOU DO NOT HAVE A PRIMARY DOCTOR YOU CAN CALL OUR PHYSICIAN REFERRAL HOTLINE AT IF YOU CAN NOT AFFORD TO SEE A PHYSICIAN YOU CAN CHOSE FROM THE FOLLOWING [facility] [address] [facility] [address] [facility] [address] [facility] [address] [facility] [address] [facility] [address] [facility] [address] Additional Instructions: Call your primary care doctor TOMORROW for an appointment during the next 1-2 days.See the doctor sooner or return here if your condition worsens before your appointment time. No DVT on ultrasound recommend leg elevation for left leg swelling MICHELLE CLINE DO Jun 26, 2018 21:01
[2018-06-26 21:25] VITALS: BP 153/67; PULSE 74; RESP 19
== END 2018-06-26 21:26 | disposition home or self-care (01) ==
LOC: FTE 15:21
DX: M79.605 Pain in left leg (principal); I10 Essential (primary) hypertension; E11.9 Type 2 diabetes mellitus without complications; Z79.4 Long term (current) use of insulin
CPT/HCPCS: 80053; 81003; 85025; 93005; 93971; 96372; J1650; Z7502; Z7610

== ENCOUNTER 2018-07-16 05:29 | Emergency (ER) | payer BC ==
[~2018-07-16] VITALS: Ht 162.6 cm; Wt 85.5 kg
[~2018-07-16 05:29] MED LIST changes: +NITR-58 PO; +OXYC-279 PO
[2018-07-16 05:39] VITALS: Ht 162.6 cm; Wt 85.5 kg
[2018-07-16] MEDS ORDERED: HYDR50TA15 PO (06:02)
--- NOTE | 2018-07-16 06:26 | ERD ---
ER Documentation Chief Complaint Chief Complaint Lower AP with burning urination HPI This is a 63-year-old woman with a history of chronic pain syndrome, frequent UTIs, opioid dependence, chronic kidney disease presenting with suprapubic pain and dysuria times 2-3 days. She denies recent antibiotics, no hematuria, no vaginal bleeding, no flank or back pain, no complaints of chest pain or shortness of breath. Patient states the pain is nonradiating and nonexertional and intermittent over the last 3 days. ROS All systems reviewed and are negative except as per history of present illness. Medications Home Meds Active Scripts Oxycodone HCl/Acetaminophen (Percocet 5-325 mg Tablet) 1 Each Tablet, 1 EACH PO TID PRN for PAIN, #9 TAB Prov:ROLANDO LENTZ MD 07/16/18 Nitrofurantoin Monohyd Macrocr* (Macrobid*) 100 Mg Capsr, 100 MG PO BID for 10 Days, CAP Prov:ROLANDO LENTZ MD 07/16/18 Nitrofurantoin Monohyd Macrocr (Macrobid) 100 Mg Capsr, 100 MG PO BID for uti for 5 Days, #10 CAP Prov:MICHELLE CLINE DO 06/26/18 Oxycodone HCl/Acetaminophen (Percocet 5-325 mg Tablet) 1 Each Tablet, 1 EACH PO Q6H PRN for PAIN, #10 TAB Prov:MICHELLE CLINE DO 06/26/18 Reported Medications Hydroxyzine Hcl* (Hydroxyzine Hcl*) 50 Mg Tablet, 50 MG PO Q8, #30 TAB 07/16/18 Paroxetine Hcl* (Paxil*) 20 Mg Tablet, 20 MG PO DAILY, TAB 06/02/18 Gabapentin* (Gabapentin*) 300 Mg Capsule, 600 MG PO TID, #180 CAP 03/05/18 Sitagliptin* (Januvia*) 25 Mg Tablet, 25 MG PO DAILY, #30 TAB 12/20/17 Zolpidem Tartrate* (Ambien*) 10 Mg Tablet, 10 MG PO QHS PRN for INSOMNIA, TAB 12/20/17 Pantoprazole* (Protonix*) 40 Mg Tablet.dr, 40 MG PO DAILY, TAB 06/16/17 Oxycodone HCl/Acetaminophen (Percocet 10-325 mg Tablet) 1 Each Tablet, 1 EACH PO Q4 PRN for PAIN, TAB 06/16/17 Lorazepam* (Lorazepam*) 1 Mg Tablet, 1 MG PO HS PRN for ANXIETY, #30 TAB 06/16/17 Insulin Glargine* (Lantus*) 100 Unit/Ml Soln, 50 UNIT SC QHS, #1 VIAL 06/16/17 Allergies Allergies: Coded Allergies: No Known Allergy (Unverified , 07/16/18) PMhx/Soc chronic pain syndrome, frequent UTIs, CKD, opioid dependence, CAD, anemia, diabetes mellitus, chronic bilateral lower extremity lymphedema, with chronic left inguinal adenopathy Hysterectomy 1994, History of Surgery: Yes (Hysterectomy) Anesthesia Reaction: No Hx Neurological Disorder: No Hx Respiratory Disorders: No Hx Cardiac Disorders: Yes (htn) Hx Psychiatric Problems: Yes (depression , anxiety ) Hx Miscellaneous Medical Probl: Yes (dm) Hx Alcohol Use: No Hx Substance Use: No Hx Tobacco Use: No Smoking Status: Never smoker Physical Exam Vitals Vital Signs Date Temp Pulse Resp B/P (MAP) Pulse Ox O2 O2 Flow FiO2 Time Delivery Rate 07/16/18 97.3 111 16 116/70 98 05:39 (85) Physical Exam Const: No acute distress, afebrile Head: Atraumatic Eyes: Normal Conjunctiva ENT: Normal External Ears, Nose and Mouth. Neck: Full range of motion. No meningismus. Resp: Clear to auscultation bilaterally Cardio: Regular rate and rhythm, no murmurs Abd: Mild suprapubic tenderness to touch, no guarding or masses, no rigidity, no psoas sign Skin: No petechiae or rashes Back: No midline or flank tenderness Ext: No cyanosis, or edema Neur: Awake and alert x3, no focal deficits or facial asymmetry Psych: Normal Mood and Affect Results 24 hrs Laboratory Tests Test 07/16/18 06:33 Urine Color RAJAN Urine Clarity CLOUDY Urine pH 6.0 Urine Specific [place] 1.018 Urine Ketones NEGATIVE mg/dL Urine Nitrite NEGATIVE mg/dL Urine Bilirubin NEGATIVE mg/dL Urine Urobilinogen NEGATIVE mg/dL Urine Leukocyte Esterase 3+ Elizabeth/ul Urine Microscopic RBC > 182 /HPF Urine Microscopic WBC > 182 /HPF Urine Squamous Epithelial Cells FEW /HPF Urine Renal Epithelial Cells FEW /HPF Urine Bacteria MODERATE /HPF Urine Hemoglobin 3+ mg/dL Urine Glucose NEGATIVE mg/dL Urine Total Protein 3+ mg/dl Current Medications Medications Dose Sig/Nuno Start Time Status Last (Trade) Ordered Route PRN Stop Time Admin Dose Reason Admin Ketorolac 30 mg ONCE STAT 07/16/18 DC 07/16/18 Tromethamine IM 06:31 06:40 (Toradol) 07/16/18 06:33 Oxycodone/ 1 tab ONCE ONCE 07/16/18 DC 07/16/18 Acetaminophen PO 07:00 06:40 (Percocet 07/16/18 07:01 (5/ 325)) 100 mg ONCE ONCE 07/16/18 UNV Nitrofurantoi PO 08:00 n 07/16/18 08:01 Macrocrystals (Macrobid) Procedures/MDM Urine analysis was positive for infection. I administered Toradol 30 mg IM x1 and Percocet 1 tablet p.o. for pain control. I reviewed most recent urine cultures and patient does show sensitivity to nitrofurantoin which I administered here in the ED. I spoke to her regarding admission for IV antibiotics versus outpatient management with p.o. antibiotics and PMD follow-up and patient preferred discharge. I prescribed 10 days of nitrofurantoin and recommended she follow-up with PMD but told to return if she develops flank pain, fever, increasing suprapubic pain, hematuria, or other concerning signs or symptoms. Differential diagnoses considered, included but not limited to acute coronary syndrome, pulmonary embolism, aortic dissection, abdominal aortic aneurysm, sepsis, stroke, meningitis, encephalitis, pneumonia, appendicitis, cholecystitis, bowel obstruction, pyelonephritis, nephrolithiasis, cystitis, as well as metabolic, hematologic, and electrolyte abnormalities. As well as abscess, cellulitis, fractures, and dislocations. Patient feels much better at this time, and vital signs are normal, symptoms have improved. I did give strict instructions to return to the ED if symptoms continue or worsen, patient will otherwise follow-up with primary care physician. Patient understood instructions and agreed to plan. Disclaimer: Inadvertent spelling and grammatical errors are likely due to EHR/dictation software use and do not reflect on the overall quality of patient care. Also, please note that the electronic time recorded on this note does not necessarily reflect the actual time of the patient encounter. Departure Diagnosis: Primary Impression: Acute UTI Additional Impressions: Chronic pain syndrome Chronic kidney disease Chronic kidney disease stage: stage 3 (moderate) Qualified Codes: N18.3 - Chronic kidney disease, stage 3 (moderate) Condition: Good ROLANDO LENTZ MD Jul 16, 2018 06:25
[2018-07-16] MEDS ORDERED: KETOROLAC 30 MG INJ IM STA (06:31)
[2018-07-16] MEDS ORDERED: OXYCODONE/ACETAMINOPHEN (5/325) TAB PO ONE (07:00)
[2018-07-16] MEDS ORDERED: OXYC-279 PO (07:43)
[2018-07-16] MEDS ORDERED: NITR-58 PO (07:43)
[2018-07-16] MEDS ORDERED: NITROFURANTOIN (SR) 100 MG CAP PO ONE (08:00)
[2018-07-16 08:29] VITALS: BP 121/72; PULSE 78; RESP 16
== END 2018-07-16 08:30 | disposition home or self-care (01) ==
LOC: E/R 05:29
DX: N39.0 Urinary tract infection, site not specified (principal); I12.9 Hypertensive chronic kidney disease with stage 1 through stage 4 chronic kidney disease, or unspecified chronic kidney disease; N18.3 Chronic kidney disease, stage 3 (moderate); G89.4 Chronic pain syndrome; I25.10 Atherosclerotic heart disease of native coronary artery without angina pectoris; E11.22 Type 2 diabetes mellitus with diabetic chronic kidney disease; Z79.4 Long term (current) use of insulin
CPT/HCPCS: 81001; 87086; 96372; J1885; Z7502; Z7610

== ENCOUNTER 2018-08-20 11:27 | Emergency (ER) | payer BC ==
[~2018-08-20] VITALS: Wt 89.0 kg
[~2018-08-20 11:27] MED LIST changes: +HYDR50TA15 PO
[2018-08-20] MEDS ORDERED: KETOROLAC 30 MG INJ IV STA (11:57)
[2018-08-20] MEDS ORDERED: SODIUM CHLORIDE 0.9% 1L BAG IV* STA (11:57)
[2018-08-20] MEDS ORDERED: ACETAMINOPHEN 325 MG TAB PO STA (11:57)
[2018-08-20] MEDS ORDERED: CEFTRIAXONE 1 GM/50 ML (PMX) 50 ML IVPB ONE (12:30)
[2018-08-20] MEDS ORDERED: morphine 4 MG/ML VIAL IV STA (12:49)
[2018-08-20] MEDS ORDERED: ONDANSETRON 4 MG INJ IV STA (12:49)
[2018-08-20] MEDS ORDERED: ACET500C5 PO (16:10)
[2018-08-20] MEDS ORDERED: CIPR500T4 PO (16:10)
[2018-08-20 16:19] VITALS: BP 105/67; PULSE 95; RESP 18
--- NOTE | 2018-08-20 19:17 | ERD ---
ER Documentation Chief Complaint Chief Complaint DYSURIA X 2 DAYS,BODY ACHES HPI 63-year-old female patient with a past medical history of diabetes, hypertension, left lower extremity DVT, chronic kidney disease, fibromyalgia, bladder prolapse, pain syndrome presents to the ED complaining of dysuria, left lower leg pain, body chills, sore throat that one week ago. States that she started to develop a fever today. Denies any chest pain, shortness of breath, nausea, vomiting, diarrhea, neck stiffness. Patient reports that she is taking Januvia and omeprazole. Patient has been here previously for similar symptoms. ROS All systems reviewed and are negative except as per history of present illness. Medications Home Meds Active Scripts Ciprofloxacin Hcl* (Ciprofloxacin Hcl*) 500 Mg Tablet, 500 MG PO BID for 7 Days, TAB Prov:BRIANNA KC PA-C 08/20/18 Acetaminophen* (Tylophen*) 500 Mg Capsule, 1 CAP PO Q6H PRN for PAIN AND OR ELEVATED TEMP, #20 CAP Prov:BRIANNA KC PA-C 08/20/18 Oxycodone HCl/Acetaminophen (Percocet 5-325 mg Tablet) 1 Each Tablet, 1 EACH PO TID PRN for PAIN, #9 TAB Prov:ROLANDO LENTZ MD 07/16/18 Nitrofurantoin Monohyd Macrocr* (Macrobid*) 100 Mg Capsr, 100 MG PO BID for 10 Days, CAP Prov:ROLANDO LENTZ MD 07/16/18 Nitrofurantoin Monohyd Macrocr (Macrobid) 100 Mg Capsr, 100 MG PO BID for uti for 5 Days, #10 CAP Prov:MICHELLE CLINE DO 06/26/18 Oxycodone HCl/Acetaminophen (Percocet 5-325 mg Tablet) 1 Each Tablet, 1 EACH PO Q6H PRN for PAIN, #10 TAB Prov:MICHELLE CLINE DO 06/26/18 Reported Medications Hydroxyzine Hcl* (Hydroxyzine Hcl*) 50 Mg Tablet, 50 MG PO Q8, #30 TAB 07/16/18 Paroxetine Hcl* (Paxil*) 20 Mg Tablet, 20 MG PO DAILY, TAB 06/02/18 Gabapentin* (Gabapentin*) 300 Mg Capsule, 600 MG PO TID, #180 CAP 03/05/18 Sitagliptin* (Januvia*) 25 Mg Tablet, 25 MG PO DAILY, #30 TAB 12/20/17 Zolpidem Tartrate* (Ambien*) 10 Mg Tablet, 10 MG PO QHS PRN for INSOMNIA, TAB 12/20/17 Pantoprazole* (Protonix*) 40 Mg Tablet.dr, 40 MG PO DAILY, TAB 06/16/17 Oxycodone HCl/Acetaminophen (Percocet 10-325 mg Tablet) 1 Each Tablet, 1 EACH PO Q4 PRN for PAIN, TAB 06/16/17 Lorazepam* (Lorazepam*) 1 Mg Tablet, 1 MG PO HS PRN for ANXIETY, #30 TAB 06/16/17 Insulin Glargine* (Lantus*) 100 Unit/Ml Soln, 50 UNIT SC QHS, #1 VIAL 06/16/17 Allergies Allergies: Coded Allergies: No Known Allergy (Unverified , 07/16/18) PMhx/Soc History of Surgery: Yes (Hysterectomy) Anesthesia Reaction: No Hx Neurological Disorder: No Hx Respiratory Disorders: No Hx Cardiac Disorders: Yes (htn) Hx Psychiatric Problems: Yes (depression , anxiety ) Hx Miscellaneous Medical Probl: Yes (dm,lymph edema) Hx Alcohol Use: No Hx Substance Use: No Hx Tobacco Use: No Smoking Status: Never smoker FmHx Family History: No diabetes, No coronary disease Physical Exam Vitals Vital Signs Date Temp Pulse Resp B/P (MAP) Pulse Ox O2 O2 Flow FiO2 Time Delivery Rate 08/20/18 98.7 95 18 105/67 98 Room Air 16:19 (80) 08/20/18 100.9 100 18 146/79 100 Room Air 12:38 (101) 08/20/18 100.9 12:28 08/20/18 100.3 100 24 126/64 99 11:30 (84) Physical Exam Const: [id number], well-nourished. In no acute distress. Head: Atraumatic, normocephalic Eyes: Normal Conjunctiva without injection. No purulent discharge. PERRLA. EOMI ENT: Normal external ear. Ear canal without erythema. Tympanic membrane pearly ruffin without effusion or bulging. Nasal canal clear with normal turbinates. Moist oropharynx without tonsillar exudates. Non-erythematous pharynx. Uvula midline. No drooling. No trismus. Neck: No cervical midline tenderness. Full range of motion. No meningismus. No cervical lymphadenopathy. No JVD. Resp: Clear to auscultation bilaterally. No wheezing, rhonchi, rales, or crackles. No accessory muscle use. No retractions. Cardio: Regular rate and rhythm. No murmurs, rubs or gallops. Abd: Soft, non tender, non distended. Normal bowel sounds. No palpable masses. No rebound tenderness. No guarding. Negative McBurney's Point. Negative Gordon's Sign. Skin: Normal skin turgor. No petechiae or rashes Back: No midline tenderness. No CVA tenderness. Ext: No cyanosis, or edema. Distal pulses intact bilaterally. Neur: Awake and alert. Normal gait. Normal coordination. Cranial Nerves II- VII intact. Normal finger to nose. Muscle strength 5/5. Sensation intact. Psych: Normal Mood and Affect Results 24 hrs Laboratory Tests Test 08/20/18 12:24 08/20/18 12:27 08/20/18 14:02 08/20/18 14:54 White Blood Count 14.4 10^3/ul Red Blood Count 4.14 10^6/ul Hemoglobin 11.5 g/dl Hematocrit 34.8 % Mean Corpuscular 84.1 fl Volume Mean Corpuscular 27.8 pg Hemoglobin Mean Corpuscular 33.0 g/dl Hemoglobin Concen t Red Cell 13.2 % Distribution Width Platelet Count 225 10^3/UL Mean Platelet 10.7 fl Volume Immature 0.600 % Granulocytes % Neutrophils % 86.6 % Lymphocytes % 7.1 % Monocytes % 4.8 % Eosinophils % 0.6 % Basophils % 0.3 % Nucleated Red 0.0 /100WBC Blood Cells % Immature 0.080 10^3/ul Granulocytes # Neutrophils # 12.5 10^3/ul Lymphocytes # 1.0 10^3/ul Monocytes # 0.7 10^3/ul Eosinophils # 0.1 10^3/ul Basophils # 0.1 10^3/ul Nucleated Red 0.0 10^3/ul Blood Cells # Sodium Level 141 mmol/L Potassium Level 5.2 mmol/L Chloride Level 102 mmol/L Carbon Dioxide 28 mmol/L Level Anion Gap 11 Blood Urea 24 mg/dl Nitrogen Creatinine 1.49 mg/dl Est Glomerular 35 mL/min Filtrat Rate mL/min Glucose Level 130 mg/dl Calcium Level 9.4 mg/dl Total Bilirubin 0.4 mg/dl Direct Bilirubin 0.00 mg/dl Indirect 0.4 mg/dl Bilirubin Aspartate Amino 23 IU/L Transf (AST/SGOT) Alanine 11 IU/L Aminotransferase (ALT/SGPT) Alkaline 73 IU/L Phosphatase Troponin I < 0.012 ng/ml Total Protein 7.7 g/dl Albumin 4.2 g/dl Globulin 3.50 g/dl Albumin/Globulin 1.20 Ratio Prothrombin Time 12.0 Sec Prothrombin Time 0.9 Ratio INR International 0.88 Normalized Ratio Activated 29.4 Sec Partial Thrombopl ast Time POC Venous 2.0 mmol/L Lactate Lipase 248 U/L Monoscreen Negative Urine Color STRAW Urine Clarity CLEAR Urine pH 6.0 Urine Specific 1.009 [place] Urine Ketones NEGATIVE mg/dL Urine Nitrite NEGATIVE mg/dL Urine Bilirubin NEGATIVE mg/dL Urine NEGATIVE mg/dL Urobilinogen Urine Leukocyte 1+ Elizabeth/ul Esterase Urine Microscopic 1 /HPF RBC Urine Microscopic 16 /HPF WBC Urine Squamous FEW /HPF Epithelial Cells Urine Bacteria FEW /HPF Urine Hemoglobin 1+ mg/dL Urine Glucose NEGATIVE mg/dL Urine Total NEGATIVE mg/dl Protein Bedside Glucose 60 mg/dL Test 08/20/18 15:26 08/20/18 15:50 Lactic Acid Level 1.8 mmol/L Bedside Glucose 109 mg/dL Current Medications Medications Dose Sig/Nuno Start Time Status Last (Trade) Ordered Route PRN Stop Time Admin Dose Reason Admin Sodium 2,670 ml BOLUS OVER 2 08/20/18 DC 08/20/18 Chloride HOURS STAT 11:57 12:29 (NS) IV* 08/20/18 12:09 650 mg ONCE STAT 08/20/18 DC 08/20/18 Acetaminophen PO 11:57 12:28 (Tylenol 08/20/18 12:09 Tab) Ketorolac 30 mg ONCE STAT 08/20/18 DC 08/20/18 Tromethamine IV 11:57 12:29 (Toradol) 08/20/18 12:09 Ceftriaxone 50 ml @ ONCE ONCE 08/20/18 DC 08/20/18 Sodium 100 mls/hr IVPB 12:30 12:34 08/20/18 12:59 Morphine 4 mg ONCE STAT 08/20/18 DC 08/20/18 Sulfate IV 12:49 12:57 (morphine) 08/20/18 12:53 Ondansetron 4 mg ONCE STAT 08/20/18 DC 08/20/18 HCl (Zofran IV 12:49 12:57 Inj) 08/20/18 12:53 Procedures/MDM 63-year-old female patient with a past medical history of diabetes, hypertension, left DVT s/p chronic edema of LLE, pain syndrome, fibromyalgia, CKD, bladder prolapse presents the ED complaining of multiple complaints of left lower leg pain, dysuria, fever, chills. Patient has febrile at 100.3 as well as tachycardic at 100. Patient's respiratory rate is 24. Patient qualifies for SIRS criteria. Patient was further worked up with CBC, CMP, lipase, UA, troponin, EKG, chest x- ray, left extremity venous ultrasound, EKG, Monospot, influenza, PT, PTT, lactate, lactic acid. Patient's pain and symptoms have improved after treatment with 30 mL/kg normal saline, 30 mg IV Toradol, 4 mg IV morphine, 4 mg IV Zofran. CBC: Leukocytosis of 14. No e/o of systemic infection. No e/o anemia. CMP: No e/o severe acidosis, alkalosis, CKD noted, diabetic ketoacidosis, liver disease Lipase within normal limits. 1st Lactic acid 2.0, 2nd Lactic acid 1.8 Urine: 1+ leukocyte esterase, no nitrites, no hematuria. Pending urine culture. Negative Monospot Negative Influenza. VENOUS ULTRASOUND, IMPRESSION: No sonographic evidence for deep venous thrombosis. Limited study due to the patient's body habitus. Calf veins are not well seen. CXR, IMPRESSION: Mild bibasilar atelectatic changes. EKG reviewed and interpreted by Dr. Lentz Rate/Rhythm: [96 bpm, Normal Sinus Rhythm] No ectopy, no ST elevations, normal axis. QRS, ST, T-waves: [No changes consistent w/ acute ischemia] Impression: [No evidence of ischemia or arrhythmia] Low suspicion for acute myocardial infarction, pneumothorax, pneumonia, cardiac tamponade, Mbwyw-Ovttfcczj-Uvoya Syndrome, Brugada Syndrome, pulmonary embolism, AAA, aortic dissection, thoracic aortic dissection, endocarditis, myocarditis, pericarditis, cocaine-related ischemia, Boerhaave's syndrome, cardiac dysrhythmias,meningitis, intracranial bleed, seizure, stroke, TIA or other emergent conditions. Patient was noted to have urinary tract infection based on the 1+ leukocyte esterase. Patient will be treated for a urinary tract infection. Urine culture pending. Low suspicion for sepsis. On patient's previous urine culture on July 16, 2018, patient was sensitive to ciprofloxacin, therefore that will be prescribed. Patient was previously given Macrobid. Negative influenza. Negative Monospot. Chest x-ray is negative for any pneumonia. No sonographic evidence of DVT. Low suspicion for ectopic , ovarian torsion, gastritis, GERD, peptic ulcer disease, cholecystitis, choledocholithiasis, cholangitis, pancreatitis, appendicitis, bowel obstruction, ileus, volvulus, nephrolithiasis, pyelonephritis, hepatitis, perforated viscus, diverticulitis, strangulated/incarcerated hernia, DKA, acute abdomen, mesenteric ischemia or other emergent conditions. Patient ambulating without any difficulty with her walker. Patient's left lower leg pain and edema is likely chronic due to history of DVT.Patient reports that she is on blood thinners but does not remember the nam e. Patient's extremity symptoms have stabilized while they have been evaluated in the department and are appropriate for outpatient follow up. No evidence of fractures, dislocations, compartment syndrome, neurologic injury, vascular injury, open joint, open fracture, tendon laceration, septic arthritis, osteomyelitis, foreign body, or other emergent conditions. Discussed with Dr. Stanford who agreed with the management and discharge plan. Diagnosis: Multiple complaints, Fever Discharge medications: Ciprofloxacin, Tylenol Follow up with primary care physician in 1-2 days. Instructed patient to return to the ED sooner for any worsening symptoms. Patient's questions were answered. Patient understood and agreed with discharge plan. Patient discharged stable. Departure Diagnosis: Primary Impression: Multiple complaints Additional Impression: Fever Fever type: unspecified Qualified Codes: R50.9 - Fever, unspecified Condition: Stable Patient Instructions: Pain Management, Urinary Tract Infections in Women, Kidney Problems, Monitoring Kidney Health Referrals: COMMUNITY CLINICS YOU HAVE RECEIVED A MEDICAL SCREENING EXAM AND THE RESULTS INDICATE THAT YOU DO NOT HAVE A CONDITION THAT REQUIRES URGENT TREATMENT IN THE EMERGENCY DEPARTMENT. FURTHER EVALUATION AND TREATMENT OF YOUR CONDITION CAN WAIT UNTIL YOU ARE SEEN IN YOUR DOCTORS OFFICE WITHIN THE NEXT 1-2 DAYS. IT IS YOUR RESPONSIBILITY TO MAKE AN APPOINTMENT FOR FOLOW-UP CARE. IF YOU HAVE A PRIMARY DOCTOR --you should call your primary doctor and schedule an appointment IF YOU DO NOT HAVE A PRIMARY DOCTOR YOU CAN CALL OUR PHYSICIAN REFERRAL HOTLINE AT IF YOU CAN NOT AFFORD TO SEE A PHYSICIAN YOU CAN CHOSE FROM THE FOLLOWING [facility] [address] [place] [facility] [address] [facility] [address] [facility] [address] [facility] [address] [facility]. [facility] [address] [facility]. [facility] YOU HAVE RECEIVED A MEDICAL SCREENING EXAM AND THE RESULTS INDICATE THAT YOU DO NOT HAVE A CONDITION THAT REQUIRES URGENT TREATMENT IN THE EMERGENCY DEPARTMENT. FURTHER EVALUATION AND TREATMENT OF YOUR CONDITION CAN WAIT UNTIL YOU ARE SEEN IN YOUR DOCTORS OFFICE WITHIN THE NEXT 1-2 DAYS. IT IS YOUR RESPONSIBILITY TO MAKE AN APPOINTMENT FOR FOLOW-UP CARE. IF YOU HAVE A PRIMARY DOCTOR --you should call your primary doctor and schedule and appointment IF YOU DO NOT HAVE A PRIMARY DOCTOR YOU CAN CALL OUR PHYSICIAN REFERRAL HOTLINE AT . IF YOU CAN NOT AFFORD TO SEE A PHYSICIAN YOU CAN CHOSE FROM THE FOLLOWING [facility]: [facility] [address] [place] [address] [facility] [address] [place] [address] [facility] [address] [place] [address] [facility] Additional Instructions: Call your pain management doctor TOMORROW for an appointment during the next 2-3 days.See the doctor sooner or return here if your condition worsens before your appointment time. BRIANNA KC PA-C Aug 20, 2018 19:17
== END 2018-08-20 16:25 | disposition home or self-care (01) ==
LOC: FTE 11:27
DX: R50.9 Fever, unspecified (principal); I10 Essential (primary) hypertension; E11.9 Type 2 diabetes mellitus without complications; R07.9 Chest pain, unspecified
CPT/HCPCS: 36415; 71045; 80053; 81001; 82962; 83605; 83690; 84484; 85025; 85610; 85730; 86308; 87040; 87086; 87400; 93005; 93971; 96361; 96365; 96366; 96375; J0696; J1885; J2270; J2405; J7030; Z7502; Z7610

== ENCOUNTER 2018-11-05 08:30 | Emergency (ER) | payer BC ==
[~2018-11-05] VITALS: Ht 160 cm; Wt 85.0 kg
[~2018-11-05 08:30] MED LIST changes: +ACET500C5 PO; +CIPR500T4 PO
[2018-11-05 08:33] VITALS: Ht 160 cm; Wt 85.0 kg
[2018-11-05] MEDS ORDERED: LIDOCAINE/MYLANTA 40 ML BTL PO STA (08:57)
[2018-11-05] MEDS ORDERED: FAMOTIDINE 20 MG TAB PO STA (08:57)
[2018-11-05] MEDS ORDERED: BELLADONNA/PHENOBARBITAL TAB PO STA (08:57)
[2018-11-05] MEDS ORDERED: UDLOM PO (09:29)
[2018-11-05] MEDS ORDERED: OXYC-431 PO (09:30)
--- NOTE | 2018-11-05 10:01 | ERD ---
ER Documentation Chief Complaint Chief Complaint AP WITH DIARRHEA X 3 DAYS HPI Translation services were utilized during this patient's encounter Language: Congolese Source: In person 63-year-old female presents to the emergency room with epigastric abdominal pain. The patient describes some nausea but no significant vomiting. Patient has had 2-3 episodes of looser stool during this timeframe. Pain is moderate, Nonradiating not associated with any chest pain or shortness of breath. ROS All systems reviewed and are negative except as per history of present illness. Medications Home Meds Active Scripts Famotidine* (Pepcid*) 20 Mg Tablet, 20 MG PO BID for 4 Days, TAB Prov:AMADA FLORES MD 11/05/18 Reported Medications Oxycodone HCl/Acetaminophen (Oxycodone-Acetaminophen 10-325) 1 Each Tablet, 1 TAB PO Q6, TAB 11/05/18 Diphenoxylate Hcl-Atropine* (Lomotil*) 5 Ml Soln, 5 ML PO Q6H PRN for DIARRHEA, ML 11/05/18 Hydroxyzine Hcl* (Hydroxyzine Hcl*) 50 Mg Tablet, 50 MG PO Q8, #30 TAB 07/16/18 Paroxetine Hcl* (Paxil*) 20 Mg Tablet, 20 MG PO DAILY, TAB 06/02/18 Gabapentin* (Gabapentin*) 300 Mg Capsule, 600 MG PO TID, #180 CAP 03/05/18 Sitagliptin* (Januvia*) 25 Mg Tablet, 25 MG PO DAILY, #30 TAB 12/20/17 Zolpidem Tartrate* (Ambien*) 10 Mg Tablet, 10 MG PO QHS PRN for INSOMNIA, TAB 12/20/17 Pantoprazole* (Protonix*) 40 Mg Tablet.dr, 40 MG PO DAILY, TAB 06/16/17 Lorazepam* (Lorazepam*) 1 Mg Tablet, 1 MG PO HS PRN for ANXIETY, #30 TAB 06/16/17 Insulin Glargine* (Lantus*) 100 Unit/Ml Soln, 50 UNIT SC QHS, #1 VIAL 06/16/17 Discontinued Reported Medications Oxycodone HCl/Acetaminophen (Percocet 10-325 mg Tablet) 1 Each Tablet, 1 EACH PO Q4 PRN for PAIN, TAB 06/16/17 Discontinued Scripts Ciprofloxacin Hcl* (Ciprofloxacin Hcl*) 500 Mg Tablet, 500 MG PO BID for 7 Days, TAB Prov:BRIANNA KC PA-C 08/20/18 Acetaminophen* (Tylophen*) 500 Mg Capsule, 1 CAP PO Q6H PRN for PAIN AND OR EL EVATED TEMP, #20 CAP Prov:BRIANNA KC PA-C 08/20/18 Oxycodone HCl/Acetaminophen (Percocet 5-325 mg Tablet) 1 Each Tablet, 1 EACH PO TID PRN for PAIN, #9 TAB Prov:ROLANDO LENTZ MD 07/16/18 Nitrofurantoin Monohyd Macrocr* (Macrobid*) 100 Mg Capsr, 100 MG PO BID for 10 Days, CAP Prov:ROLANDO LENTZ MD 07/16/18 Nitrofurantoin Monohyd Macrocr (Macrobid) 100 Mg Capsr, 100 MG PO BID for uti for 5 Days, #10 CAP Prov:MICHELLE CLINE DO 06/26/18 Oxycodone HCl/Acetaminophen (Percocet 5-325 mg Tablet) 1 Each Tablet, 1 EACH PO Q6H PRN for PAIN, #10 TAB Prov:MICHELLE CLINE DO 06/26/18 Allergies Allergies: Coded Allergies: No Known Allergy (Unverified , 11/05/18) PMhx/Soc History of Surgery: Yes (Hysterectomy) Anesthesia Reaction: No Hx Neurological Disorder: No Hx Respiratory Disorders: No Hx Cardiac Disorders: Yes (htn) Hx Psychiatric Problems: Yes (depression , anxiety ) Hx Miscellaneous Medical Probl: Yes (dm,lymph edema) Hx Alcohol Use: No Hx Substance Use: No Hx Tobacco Use: No FmHx Family History: No diabetes Physical Exam Vitals Vital Signs Date Temp Pulse Resp B/P (MAP) Pulse Ox O2 O2 Flow FiO2 Time Delivery Rate 11/05/18 98.4 110 20 111/89 97 Nasal 2.0 11:03 (96) Cannula 11/05/18 98.1 124 18 143/85 99 08:33 (104) Physical Exam General: Well developed, well nourished, no acute distress Head: Normocephalic, atraumatic. Eyes: Pupils equally reactive, EOM intact ENT: Moist mucous membranes Neck: Supple, no lymphadenopathy Respiratory: Lungs clear bilaterally, no distress Cardiovascular: RRR, no murmurs, rubs, or gallops Abdominal: Soft, reproducible epigastric abdominal discomfort without rebound or guarding, negative Gordon sign, no tenderness to McBurney's point : Deferred MSK: No edema, no unilateral swelling, 5/5 strength Neurologic: Alert and oriented, moving all extremities, normal speech, no focal weakness, no cerebellar signs Skin: No rash Psych: Normal mood Result Diagram: 11/05/18 1007 11/05/18 1007 Results 24 hrs Laboratory Tests Test 11/05/18 10:07 11/05/18 10:45 White Blood Count 5.9 10^3/ul Red Blood Count 4.70 10^6/ul Hemoglobin 12.9 g/dl Hematocrit 38.0 % Mean Corpuscular Volume 80.9 fl Mean Corpuscular Hemoglobin 27.4 pg Mean Corpuscular Hemoglobin Concent 33.9 g/dl Red Cell Distribution Width 13.4 % Platelet Count 192 10^3/UL Mean Platelet Volume 10.9 fl Immature Granulocytes % 0.500 % Neutrophils % 63.6 % Lymphocytes % 21.2 % Monocytes % 11.3 % Eosinophils % 2.9 % Basophils % 0.5 % Nucleated Red Blood Cells % 0.0 /100WBC Immature Granulocytes # 0.030 10^3/ul Neutrophils # 3.8 10^3/ul Lymphocytes # 1.3 10^3/ul Monocytes # 0.7 10^3/ul Eosinophils # 0.2 10^3/ul Basophils # 0.0 10^3/ul Nucleated Red Blood Cells # 0.0 10^3/ul Sodium Level 138 mmol/L Potassium Level 4.5 mmol/L Chloride Level 101 mmol/L Carbon Dioxide Level 26 mmol/L Anion Gap 11 Blood Urea Nitrogen 30 mg/dl Creatinine 1.80 mg/dl Est Glomerular Filtrat Rate mL/min 28 mL/min Glucose Level 169 mg/dl Calcium Level 8.7 mg/dl Total Bilirubin 0.4 mg/dl Direct Bilirubin 0.00 mg/dl Indirect Bilirubin 0.4 mg/dl Aspartate Amino Transf (AST/SGOT) 29 IU/L Alanine Aminotransferase (ALT/SGPT) 20 IU/L Alkaline Phosphatase 92 IU/L Troponin I < 0.012 ng/ml Total Protein 8.2 g/dl Albumin 4.2 g/dl Globulin 4.00 g/dl Albumin/Globulin Ratio 1.05 Lipase 152 U/L Urine Color YELLOW Urine Clarity SLIGHTLY CLOUDY Urine pH 6.0 Urine Specific [place] 1.013 Urine Ketones NEGATIVE mg/dL Urine Nitrite POSITIVE mg/dL Urine Bilirubin NEGATIVE mg/dL Urine Urobilinogen NEGATIVE mg/dL Urine Leukocyte Esterase 3+ Elizabeth/ul Urine Microscopic RBC 4 /HPF Urine Microscopic WBC > 182 /HPF Urine Squamous Epithelial Cells FEW /HPF Urine Bacteria FEW /HPF Urine Hemoglobin 1+ mg/dL Urine Glucose NEGATIVE mg/dL Urine Total Protein 2+ mg/dl Current Medications Medications Dose Sig/Nuno Start Time Status Last (Trade) Ordered Route PRN Stop Time Admin Dose Reason Admin Famotidine 20 mg ONCE STAT 11/05/18 DC 11/05/18 (Pepcid) PO 08:57 09:46 11/05/18 08:59 40 ml ONCE STAT 11/05/18 DC 11/05/18 Miscellaneous PO 08:57 09:46 Medication 11/05/18 08:59 (Gi Cocktail (2)) Belladonna/ 2 tab ONCE STAT 11/05/18 DC 11/05/18 Phenobarbital PO 08:57 09:46 () 11/05/18 08:59 Procedures/MDM EKG, MONITORS, & DIAGNOSTIC IMAGING: EKG: I reviewed and interpreted a 12-lead EKG. Rhythm: Normal sinus rhythm ST Changes: No contiguous ST segment elevations T waves: No contiguous T wave inversions Impression: No evidence of acute cardiac ischemia LAB INTERPRETATION: I reviewed the laboratory testing and it shows no evidence of acute process MEDICAL DECISION MAKING: Patient's epigastric abdominal pain is likely secondary to possible GI upset, gastritis versus peptic ulcer disease. The patient does have some looser stools, raises the concern for possible viral process. No signs or symptoms concerning for acute intra-abdominal process such as acute cholecystitis, choledocholithiasis, acute appendicitis or bowel obstruction. Patient has an otherwise benign abdominal exam and does not warrant CT imaging of the abdomen and pelvis. No signs or symptoms concerning for cardiac etiology, no exertional symptoms though EKG and troponin would be reasonable given the patient's age. ER COURSE: * GI cocktail provided * Patient symptoms are improved. At this point the patient can be safely discharged. Creatinine is consistent with baseline. CONSULTATION: None DISPOSITION PLAN: The patient does not have an identifiable emergent medical condition that warrants inpatient hospitalization at this time. The patient is deemed safe for discharge with outpatient follow-up. We discussed follow up with the patient's primary care doctor within 24 to 48 hours as needed. We also discussed return to the emergency room for worsening symptoms or worsening condition. Outpatient referral: None required Discharge Medications: Pepcid Departure Diagnosis: Primary Impression: Abdominal pain Abdominal location: epigastric Qualified Codes: R10.13 - Epigastric pain Additional Impression: Chronic renal insufficiency Chronic kidney disease stage: unspecified stage Qualified Codes: N18.9 - Chronic kidney disease, unspecified Condition: Stable AMADA FLORES MD Nov 05, 2018 10:01
[2018-11-05 11:03] VITALS: BP 111/89; PULSE 110; RESP 20
[2018-11-05] MEDS ORDERED: FAMO-96 PO (11:50)
[2018-11-05] MEDS ORDERED: CEPH-443 PO (11:56)
== END 2018-11-05 12:26 | disposition home or self-care (01) ==
LOC: E/R 08:30
DX: I12.9 Hypertensive chronic kidney disease with stage 1 through stage 4 chronic kidney disease, or unspecified chronic kidney disease (principal); N18.9 Chronic kidney disease, unspecified; N39.0 Urinary tract infection, site not specified; E11.22 Type 2 diabetes mellitus with diabetic chronic kidney disease; Z79.4 Long term (current) use of insulin
CPT/HCPCS: 80053; 81001; 83690; 84484; 85025; 93005; Z7502; Z7610

== ENCOUNTER 2018-12-24 10:53 | Emergency (ER) | payer BC ==
[~2018-12-24] VITALS: Ht 154.9 cm; Wt 88.6 kg
[~2018-12-24 10:53] MED LIST changes: -ACET500C5 PO; +CEPH-443 PO; -CIPR500T4 PO; +FAMO-96 PO; -NITR-58 PO; -OXYC-209 PO; -OXYC-279 PO; +OXYC-431 PO; +PHEN-537 PO; +UDLOM PO
[2018-12-24 11:02] VITALS: BP 126/72; RESP 18; Ht 154.9 cm; Wt 88.6 kg
[2018-12-24 13:14] VITALS: PULSE 106
== END 2018-12-24 13:14 | disposition home or self-care (01) ==
LOC: FTE 10:53
DX: R39.89 Other symptoms and signs involving the genitourinary system (principal); I10 Essential (primary) hypertension; E11.9 Type 2 diabetes mellitus without complications; Z79.4 Long term (current) use of insulin
CPT/HCPCS: 99282